=== PATIENT | male | born 1980 | race Caucasian/White ===

== ENCOUNTER 2017-02-08 12:47 | Emergency (ER) | payer BC ==
[2017-02-08] MEDS ORDERED: Acetaminophen 500 MG Tab PO ONE (14:00)
--- NOTE | 2017-02-08 15:24 | CR ---
INDICATION: Short of breath, fever. CHEST: PA and two lateral views of the chest were obtained 02/08/2017. No comparisons were available. Evidence of exogenous obesity is noted. The heart did not appear enlarged. There is an appearance of a poor inspiration emphasized by the patient body habitus. No consolidating pneumonia or effusion was identified. IMPRESSION: 1. No acute process. 2. Exogenous obesity. MTDD
--- NOTE | 2017-02-09 09:44 | ER ---
DATE SEEN: 02/08/2017 HISTORY OF PRESENT ILLNESS: This is a 37-year-old single 500 pound male, who was seen by Daisy Awad CNP, this morning and telephone call was made by Daisy to me and he was transferred to the ED for further evaluation. He had a white count of 34,000, has hypertension, is 530 pounds, and denies shortness of breath, chest pain, irregular heartbeat, nausea, or vomiting. He has had 5 days of chills, fever, myalgia, slight cough, mild headache, mild malaise, retching 3 times today, and mild shortness of breath. Chest x-ray was performed at the clinic, and it was negative. Differential at the clinic was performed, it is elevated with bandemia. Strep test obtained and mono test obtained, both are negative. He has hypertension and treats with lisinopril 20 mg and hydrochlorothiazide 25 mg daily. Previous surgery, none. He notes he has more pain in the right lower leg. He has had chronic pain in that is baseline. He had chronic lymphedema. He denies numbness in leg. PAST MEDICAL HISTORY: No diabetes. He does have hypertension, 2 drug therapy for hypertension. No asthma. Appears allergic to albuterol. No bleeding disorder. No surgery. He has massive weight. 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 He has had nausea and vomiting, but no diarrhea. Denies frequency, urgency, dysuria, or difficulty passing urine. He lives with his mother. 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 He denies headache, neck stiffness, lightheadedness, dizziness, or abdominal pain. He has right leg pain. PHYSICAL EXAMINATION: VITAL SIGNS: Blood pressure is 109/69, heart rate 124, respirations 24, oxygen saturation 99% on room air, and temperature is 38.8 degrees centigrade. CONSTITUTIONAL: The patient is a massive man, massive overhang of panniculus of his abdomen. He is not looking short of breath presently. Marked facial fullness, unshaven, has a landeros. He is attended by his mother. HEENT: Pharynx without abnormality. He has a large tongue. TMs negative. NECK: Supple. No thyromegaly, no masses, no cervical lymphadenopathy. HEART: S1, S2. There is no murmur. No irregular rate and rhythm. CHEST: Massive chest wall size, AP diameter, but no crepitus with palpation. No tenderness to chest wall with palpation. ABDOMEN: Nontender, massive abdominal girth. EXTREMITIES: Lower extremities, marked stasis dermatitis with violaceous discoloration and erythema below the knee on the right side. No erythema below the left knee. Pulses present and the dorsalis pedis pulses decreased. Because of the extensive lymphedema, there is 1+ edema, but it is difficult to determine, because he has marked skin fold with lymphedema at his ankles and proximal to his ankles. He has no intertrigo. DIAGNOSTIC STUDIES: Blood work repeated 32,200 with PMNs 85, lymphocytes 6, 1 monocytes, 8 bands, hemoglobin 14, and platelets 232,000. PT is 13.5, INR is 1.33. D-dimer is 1730. Sodium 134, potassium 3.8, chloride 99, bicarbonate 26, BUN 16, creatinine 1.2, glucose 137, total protein is normal at 7.8, albumin 2.5. Remainder of liver enzymes, bilirubin, and calcium are normal. ASSESSMENT: 1. Cellulitis, right lower extremity, rule out Pseudomonas. Because of his massive weight and size of his lower extremity, ultrasound was not performed. D-dimer is elevated secondary to vascular stasis in lower extremities, because of his underlying massive edema. The plan is to treat. There is a new device that is approximately $6,000.00, LymphoStat, which is discussed [facility] lymphedema specialist on the radio yesterday. Perhaps this is something he would benefit and he was instructed inquire with the staff at [place], and [facility] staff. 2. Start with Xarelto 15 mg b.i.d. for 21 days then 20 mg daily. He does does not really have DVT, but he has stasis dermatitis, he is at risk for DVT, and benefit form. 3. Cellulitis, right lower extremity, rule out Pseudomonas, treated with Levaquin 750 mg 1 tablet daily for 5 days. Follow up with doctor next week. Also apply Vaseline to the lower extremities to avoid crack in the skin and entry of bacteria through the skin (seeding through his lower extremities). 4. Other diagnosis: morbid obesity and urinalysis normal. No evidence for urinary tract infection. He did have positive leukocyte esterase but the rest of the urine was negative on the laboratory studies performed at the clinic today. /[id number] GARCIA/BECK CODY
== END 2017-02-08 15:21 | disposition home or self-care (01) ==
LOC: FB.ED 12:47
DX: L03.115 Cellulitis of right lower limb (principal); I87.2 Venous insufficiency (chronic) (peripheral); E66.01 Morbid (severe) obesity due to excess calories; I10 Essential (primary) hypertension; Z79.899 Other long term (current) drug therapy
CPT/HCPCS: 36415; 71020; 80053; 83605; 85025; 85379; 85610; 87040; 99284; A9270

== ENCOUNTER 2019-02-13 13:59 | Emergency (ER) | payer BC ==
--- NOTE | 2019-02-14 08:52 | ER ---
DATE SEEN: 02/13/2019 CHIEF COMPLAINT: Left leg pain. HISTORY OF PRESENT ILLNESS: A 39-year-old male, who complains of pain in the left calf. It was the ankle. This started yesterday after an injury while walking, felt a sharp pain that radiates up to the knee. Pain is worse with weightbearing. He does have chronic lymphedema and obesity and hypertension that is previously uncontrolled. REVIEW OF SYSTEMS: No fever, shortness of breath, or chest pain. SOCIAL HISTORY: Nonsmoker. Works at [employer]. PAST MEDICAL HISTORY: He has no history of recent surgery or blood clots. PHYSICAL EXAMINATION: VITAL SIGNS: Blood pressure initially 147/106, temperature 98.1, pulse 101, oxygenation 99% on room air. EXTREMITIES: Left ankle revealed marked lymphedema. Mild warmth to palpation distally and some tenderness to palpation over the Achilles tendon area. LABORATORY DATA: Labs were remarkable for CRP and a slight elevation in D- dimer. IMPRESSION: Injury of left leg. PLAN: I suspect this is an inflammation or injury of the Achilles tendon or the gastrocnemius muscle. I suspect worsening of the lymphedema, but I do not feel it is related to a blood clot. As such, I will discharge him home with ice, elevation, and ibuprofen p.r.n. and not to return to work tonight and see Daisy Awad CNP, tomorrow at the clinic. /[id number] SHENG/BECK
== END 2019-02-13 15:25 | disposition home or self-care (01) ==
LOC: FB.ED 13:59
DX: S89.92XA Unspecified injury of left lower leg, initial encounter (principal); I89.0 Lymphedema, not elsewhere classified; I10 Essential (primary) hypertension; E66.9 Obesity, unspecified; Z68.45 Body mass index [BMI] 70 or greater, adult; W00.0XXA Fall on same level due to ice and snow, initial encounter; Y93.01 Activity, walking, marching and hiking; Y92.009 Unspecified place in unspecified non-institutional (private) residence as the place of occurrence of the external cause
CPT/HCPCS: 36415; 80048; 85025; 85379; 86140; 99283

== ENCOUNTER 2020-12-02 06:11 | Inpatient (IN) | payer BC ==
[2020-12-02] MEDS ORDERED: Acetaminophen/oxyCODONE 325-5 MG Tab PO STA (08:39)
[2020-12-02] MEDS: Sodium Chloride 0.9% 10 ML Syringe FLUSH PRN ×3 (09:21→16:42)
[2020-12-02] MEDS ORDERED: Piperacillin/Tazobactam 4.5 GM in Sodium Chloride 0.9% 100 ML IV SCH (10:00)
[2020-12-02] MEDS ORDERED: Morphine 2 MG/ML SYRINGE IVPUSH PRN (12:55)
[2020-12-02] MEDS: Ondansetron 4 MG/2 ML SDV IV PRN (13:24)
--- NOTE | 2020-12-02 13:39 | CR ---
CHEST ONE VIEW INDICATION: Short of breath. FINDINGS: AP portable upright view of the chest 12/02/20 was compared with 02/08/17. Exogenous obesity is noted. The heart appears somewhat enlarged but is markedly emphasized by patient body habitus and poor inspiration. A definite active infiltrate or effusion was not identified. MTDD
[2020-12-02] MEDS: Enoxaparin 40 MG/0.4 ML Syringe SUBCUT SCH (13:43)
--- NOTE | 2020-12-02 16:30 | US ---
INDICATION: Elevated D-dimer, leg pain. Question DVT. DUPLEX ULTRASOUND, LEFT LOWER EXTREMITY VEINS: Utilizing 2D real-time duplex Doppler, spectral analysis and color-flow imaging, examination of the left lower extremity veins was obtained. The study is limited due to the patient's large body habitus. Only the common femoral, greater saphenous and SFJ proximally and proximal femoral vein were visualized. Calf was not adequately visualized. As visualized, however, no evidence for deep venous thrombosis could be identified. IMPRESSION: No evidence of deep venous thrombosis - limited study. Report was called to Dr. Levi vivas, 12/02/20. MTDD
[2020-12-02] MEDS: Piperacillin/Tazobactam 4.5 GM in Sodium Chloride 0.9% 100 ML IV SCH ×2 (16:41→22:26)
--- NOTE | 2020-12-02 17:18 | PCM.HP.2 ---
H&P History of Present Illness - General Date of Service: 12/02/20 Admit Problem/Dx: Admission Diagnosis/Problem Admission Diagnosis/Problem Cellulitis Source of Information: Patient History Limitations: Reports: No Limitations - History of Present Illness Initial Comments - Free Text/Narative: This is a 40-year-old male patient that has about 1 week history of left lower leg pain and a slight fever. Got worse today so he came into the ER. He saw Mann Wade earlier this week and nobody gave any antibiotics. He denies chills, nausea, vomiting. He says he has had MRSA in the past. No injury to his leg that he knows of. left leg Pain Score (Numeric/FACES): 8 - Related Data Allergies/Adverse Reactions: Allergies Allergy/AdvReac Type Severity Reaction Status Date / Time albuterol Allergy Dizziness Verified 12/02/20 06:38 Home Medications: Home Meds Hydrochlorothiazide/Lisinopril [Lisinopril/HCTZ 20-12.5 MG] 1 tab PO DAILY 12/02/20 [History] Liraglutide [Victoza] 1.8 mg SQ DAILY 12/02/20 [History] Multivitamins [Tab-A-Sami] 1 tab PO DAILY 12/02/20 [History] Past Medical History Cardiovascular History: Reports: Hypertension Respiratory History: Reports: SOB Musculoskeletal History: Reports: Other (See Below) Other Musculoskeletal History: tendonitis Endocrine/Metabolic History: Reports: Diabetes, Type II, Obesity/BMI 30+, Other (See Below) Other Endocrine/Metabolic History: morbid obesity Dermatologic History: Reports: Other (See Below) Other Dermatologic History: 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 - Infectious Disease History Infectious Disease History: Reports: Chicken Pox - Past Surgical History Cardiovascular Surgical History: Reports: None Respiratory Surgical History: Reports: None Endocrine Surgical History: Reports: None Musculoskeletal Surgical History: Reports: None Dermatological Surgical History: Reports: None Social & Family History - Family History Family Medical History: No Pertinent Family History - Tobacco Use Tobacco Use Status *Q: Never Tobacco User Second Hand Smoke Exposure: Yes - Caffeine Use Caffeine Use: Reports: Coffee Caffeine Use Comment: Drinks coffee regularly - Recreational Drug Use Recreational Drug Use: No H&P Review of Systems - Review of Systems: Review Of Systems: See Below General: Reports: Fever HEENT: Reports: No Symptoms Pulmonary: Reports: No Symptoms Cardiovascular: Reports: No Symptoms Gastrointestinal: Reports: No Symptoms Genitourinary: Reports: No Symptoms Musculoskeletal: Reports: No Symptoms Skin: Reports: Rash, Erythema Psychiatric: Reports: No Symptoms Neurological: Reports: No Symptoms Hematologic/Lymphatic: Reports: No Symptoms Immunologic: Reports: No Symptoms Exam - Exam Exam: See Below - Vital Signs Vital Signs: Last Vital Signs Temp 100.5 F 12/02/20 13:15 Pulse 129 H 12/02/20 13:15 Resp 22 H 12/02/20 13:15 BP 81/49 L 12/02/20 13:15 Pulse Ox 95 12/02/20 13:15 Weight: 599 lb 6.4 oz - Exam General: Alert, Oriented, Cooperative, Other (Obese) HEENT: Hearing Intact, Mucosa Moist & [place], Posterior Pharynx Clear, TMs Clear Neck: Supple, Trachea Midline Lungs: Clear to Auscultation, Normal Respiratory Effort. No: Crackles, Rales, Rhonchi Cardiovascular: Regular Rate, Regular Rhythm. No: Systolic Murmur GI/Abdominal Exam: Normal Bowel Sounds, Soft, Non-Tender, No Distention Back Exam: Normal Inspection Extremities: Other (Chronic lymphedema bilateral) Skin: Other (Erythema left lower leg with area looks like abrasion that has a crust but not weeping.) Neuro Extensive - Mental Status: Alert, Oriented x3, Normal Mood/Affect, Normal Cognition Neuro Extensive - Motor, Sensory, Reflexes: Normal Gait Psychiatric: Alert, Normal Affect, Normal Mood - Patient Data Lab Results Last 24 hrs: Laboratory Results - last 24 hr 12/02/20 12/02/20 12/02/20 Range/Units 06:35 06:35 06:35 WBC 29.3 H (3.2-10.1) x10-3/uL RBC 4.92 (3.90-5.90) x10(6)uL Hgb 12.9 (12.9-17.7) g/dL Hct 41.5 (38.3-50.1) % MCV 84.5 (80.8-98.7) fL MCH 26.3 L (27.0-33.3) pg MCHC 31.2 (28.7-35.3) g/dL RDW 15.6 H (12.4-15.0) % Plt Count 286 (117-477) x10(3)uL MPV 10.9 (6.7-11.0) fL Add Manual Diff Yes Neutrophils % (Manual) 60 (46-82) % Band Neutrophils % 27 H* (0-6) % Lymphocytes % (Manual) 4 L (13-37) % Monocytes % (Manual) 5 (4-12) % Metamyelocytes % 2 H (0-0) % Myelocytes % 2 H (0-0) % D-Dimer, Quantitative 1.55 H (0.0-0.59) mg/LFEU Sodium 140 (135-145) mmol/L Potassium 3.4 L (3.5-5.3) mmol/L Chloride 101 D (100-110) mmol/L Carbon Dioxide 24 (21-32) mmol/L BUN 23 H D (7-18) mg/dL Creatinine 2.6 H* (0.70-1.30) mg/dL Est Cr Clr Drug Dosing 37.39 mL/min Estimated GFR (MDRD) 27 L (>60) BUN/Creatinine Ratio 8.8 L (9-20) Glucose 154 H (80-116) mg/dL Calcium 8.1 L (8.6-10.2) mg/dL Total Bilirubin 1.0 (0.1-1.3) mg/dL AST 20 (5-25) IU/L ALT 24 D (12-36) U/L Alkaline Phosphatase 68 (56-112) IU/L Troponin I (4.0-60.3) pg/mL C-Reactive Protein (0.5-0.9) mg/dL NT-Pro-B Natriuret Pep (<=125) pg/mL Total Protein 6.7 (6.0-8.0) g/dL Albumin 2.4 L (3.5-5.2) g/dL Globulin 4.3 g/dL Albumin/Globulin Ratio 0.6 SARS-CoV-2 RNA (MIROSLAVA) (NEGATIVE) 12/02/20 12/02/20 12/02/20 Range/Units 06:35 06:35 10:18 WBC (3.2-10.1) x10-3/uL RBC (3.90-5.90) x10(6)uL Hgb (12.9-17.7) g/dL Hct (38.3-50.1) % MCV (80.8-98.7) fL MCH (27.0-33.3) pg MCHC (28.7-35.3) g/dL RDW (12.4-15.0) % Plt Count (117-477) x10(3)uL MPV (6.7-11.0) fL Add Manual Diff Neutrophils % (Manual) (46-82) % Band Neutrophils % (0-6) % Lymphocytes % (Manual) (13-37) % Monocytes % (Manual) (4-12) % Metamyelocytes % (0-0) % Myelocytes % (0-0) % D-Dimer, Quantitative (0.0-0.59) mg/LFEU Sodium (135-145) mmol/L Potassium (3.5-5.3) mmol/L Chloride (100-110) mmol/L Carbon Dioxide (21-32) mmol/L BUN (7-18) mg/dL Creatinine (0.70-1.30) mg/dL Est Cr Clr Drug Dosing mL/min Estimated GFR (MDRD) (>60) BUN/Creatinine Ratio (9-20) Glucose (80-116) mg/dL Calcium (8.6-10.2) mg/dL Total Bilirubin (0.1-1.3) mg/dL AST (5-25) IU/L ALT (12-36) U/L Alkaline Phosphatase (56-112) IU/L Troponin I 52.2 (4.0-60.3) pg/mL C-Reactive Protein 16.4 H* (0.5-0.9) mg/dL NT-Pro-B Natriuret Pep 2996 H* (<=125) pg/mL Total Protein (6.0-8.0) g/dL Albumin (3.5-5.2) g/dL Globulin g/dL Albumin/Globulin Ratio SARS-CoV-2 RNA (MIROSLAVA) Negative (NEGATIVE) Result Diagrams: 12/02/20 06:35 12/02/20 06:35 Sepsis Event Note - Evaluation Sepsis Screening Result: Possible Sepsis Risk - Focused Exam Vital Signs: Vital Signs Temp Pulse Resp BP BP Pulse Ox 12/02/20 13:15 100.5 F 129 H 22 H 81/49 L 95 12/02/20 06:15 96.5 F L 129 H 28 H 108/50 L 96 - Problem List (1) Cellulitis SNOMED Code(s): 077155457 ICD Code: L03.90 - CELLULITIS, UNSPECIFIED Status: Acute Current Visit: Yes (2) Chronic acquired lymphedema SNOMED Code(s): 33165948 ICD Code: I89.0 - LYMPHEDEMA, NOT ELSEWHERE CLASSIFIED Status: Acute Current Visit: Yes (3) Obesity SNOMED Code(s): 107077805, 557780495 ICD Code: E66.9 - OBESITY, UNSPECIFIED Status: Acute Current Visit: Yes (4) History of MRSA infection SNOMED Code(s): 495110236, 382989086 ICD Code: Z86.14 - PERSONAL HISTORY OF METHICILLIN RESIS STAPH INFECTION Status: Acute Current Visit: Yes (5) Palliative care status SNOMED Code(s): 093557406 ICD Code: Z51.5 - ENCOUNTER FOR PALLIATIVE CARE Status: Acute Current Visit: Yes Problem List Initiated/Reviewed/Updated: Yes Orders Last 24hrs: Active Orders 24 hr Category Date Time Status Patient Status [ADT] Routine ADT 12/02/20 12:55 Active Intake and Output [RC] 06,14,22 Care 12/02/20 12:58 Active Oxygen Therapy [RC] PRN Care 12/02/20 12:55 Active Pulse Oximetry [RC] CONTINUOUS Care 12/02/20 12:58 Active Up With Assistance [RC] ASDIRECTED Care 12/02/20 12:55 Active VTE/DVT Education [RC] Per Unit Routine Care 12/02/20 12:55 Active Vital Signs [RC] 08,12,16,20,00,04 Care 12/02/20 12:55 Active Heart Healthy Diet [DIET] Diet 12/02/20 Dinner Active BASIC METABOLIC PANEL,BMP [CHEM] AM Lab 12/03/20 05:11 Ordered CBC WITH AUTO DIFF [HEME] AM Lab 12/03/20 05:11 Ordered VANCOMYCIN TROUGH [CHEM] Timed Lab 12/04/20 04:30 Ordered Acetaminophen/HYDROcodone [[place] 325-5 MG] Med 12/02/20 12:55 Active 2 tab PO Q4H PRN Docusate Sodium/Sennosides [Senna Plus] Med 12/02/20 12:55 Active 1 tab PO BID PRN Enoxaparin [Lovenox] Med 12/02/20 13:00 Active 40 mg SUBCUT Q12H Liraglutide [Victoza] Med 12/03/20 09:00 Pending 1.8 mg SQ DAILY Morphine Med 12/02/20 12:55 Active 2 mg IVPUSH Q2H PRN Ondansetron [Zofran] Med 12/02/20 12:55 Active 4 mg IV Q4H PRN Pharmacy to Dose - Vancomycin Med 12/02/20 17:00 Pending 1 dose .XX ASDIRECTED Piperacillin/Tazobactam [Zosyn] 4.5 gm Med 12/02/20 16:00 Active Sodium Chloride 0.9% [Normal Saline] 100 ml IV Q6H Sodium Chloride 0.9% [Saline Flush] Med 12/02/20 08:40 Active 10 ml FLUSH ASDIRECTED PRN VANCOmycin 2 GM/400 ML 2 gm Med 12/02/20 17:00 Active Premix Bag 1 bag IV Q12H Saline Lock Insert [OM.PC] Routine Oth 12/02/20 08:40 Ordered Resuscitation Status Routine Resus Stat 12/02/20 12:55 Ordered Medication Orders Hydrocodone Bitart/Acetaminophen (Acetaminophen/Hydrocodone 325-5 Mg Tab) 2 tab PO Q4H PRN PRN Reason: Pain (moderate 4-6) Enoxaparin Sodium (Enoxaparin 40 Mg/0.4 Ml Syringe) 40 mg SUBCUT Q12H [facility] Last Admin: 12/02/20 13:43 Dose: 40 mg Documented by: ORQUIDEA Piperacillin Sod/Tazobactam (Sod 4.5 gm/ Sodium Chloride) 100 mls @ 200 mls/hr IV Q6H [facility] Last Admin: 12/02/20 16:41 Dose: 200 mls/hr Documented by: BOSHCAT Vancomycin HCl 2 gm/ Premix 400 mls @ 200 mls/hr IV Q12H [facility] Morphine Sulfate (Morphine 2 Mg/Ml Syringe) 2 mg IVPUSH Q2H PRN PRN Reason: Pain (severe 7-10) Non-Formulary Medication (Liraglutide [Victoza]) 1.8 mg SQ DAILY TONE Ondansetron HCl (Ondansetron 4 Mg/2 Ml Sdv) 4 mg IV Q4H PRN PRN Reason: Nausea/Vomiting Last Admin: 12/02/20 13:24 Dose: 4 mg Documented by: ORQUIDEA Senna/Docusate Sodium (Docusate Sodium/Sennosides 50-8.6 Mg Tab) 1 tab PO BID PRN PRN Reason: Constipation Sodium Chloride (Sodium Chloride 0.9% 10 Ml Syringe) 10 ml FLUSH ASDIRECTED PRN PRN Reason: Keep Vein Open Last Admin: 12/02/20 16:42 Dose: 10 ml Documented by: Admin: 12/02/20 13:24 Dose: 10 ml Documented by: Admin: 12/02/20 09:21 Dose: 10 ml Documented by: DAX Vancomycin HCl (Pharmacy To Dose - Vancomycin) 1 dose .XX ASDIRECTED TONE Assessment/Plan Comment:: 1. Admit to inpatient 2. Start Zosyn and vancomycin IV. 3. Regular diet 4. Hydrocodone for pain 5. Hold blood pressure medication 6. IV fluids 7. Repeat labs in the morning. 8. Culture of the wound. 9. Make sure he has had blood cultures. - Mortality Measure Prognosis:: Good
[2020-12-02] MEDS ORDERED: Sodium Chloride 0.9% 1,000 ML IV SCH (17:30)
[2020-12-02] MEDS ORDERED: Sodium Chloride 0.9% 500 ML IV ONE (17:38)
[2020-12-02] MEDS: VANCOmycin 2 GM/400 ML 2 GM in Premix Bag 1 BAG IV SCH (17:45)
[2020-12-02] MEDS ORDERED: Sodium Chloride 0.9% 1,000 ML IV ONE (20:09)
--- NOTE | 2020-12-02 21:50 | PCM.SN.2 ---
- Free Text/Narrative Note: I was asked to see time because of an increased heart rate of 129, with a borderline low blood pressure. He was admitted earlier today for cellulitis, and mobility abuse. In addition IV line infiltrated, and the distribution driver was having difficulty placing access. On physical exam came across with mild respiratory distress. I reviewed his labs he has a creatinine of 2.6 with a white cell count [id number].I attempted an I/O x2 with no success at the right femoral head.We were eventually able to get access in his belly. I ordered a bolus on 1L NS and reassess. Time Documentation
[2020-12-02] MEDS ORDERED: Furosemide 40 MG/4 ML VIAL IVPUSH ONE (22:00)
--- NOTE | 2020-12-02 22:10 | PCM.SN.2 ---
- Free Text/Narrative Note: [facility] Date: 12/02/2020 Time: 2034 to 2139 Dx: Sepsis, Super Morbid Obesity with BMI 89, and Very Difficult Peripheral Access Rx: Obtain Peripheral Venous Access I was called by the floor RN to come and start an IV. Numerous attempts without success by the floor RN. I tried at least 5 times in the right ACF and shoulder plus the left ACF and Shoulder without success. Dr. Saravia attempted an IO in the right proximal Tibia X 2 attempts without success. I did find an engorged superficial right lateral lower abdominal vein. I prepped the area with a ChloraPrep X 1 and allowed it to dry. Using a [employer] BC Winged 22 Ga. X 1.00 In. needle, I inserted and advanced it fairly easily with a great blood return. I placed an Op-Site dressing and flushed the catheter with 10 ml's of Normal Saline without complication. The patient tolerated this procedure as well as can be expected. Sadiq Pride CRNA, A Time Documentation
[2020-12-02] MEDS: Sodium Chloride 0.9% 1,000 ML IV SCH (22:23)
[2020-12-03] MEDS: Enoxaparin 40 MG/0.4 ML Syringe SUBCUT SCH ×2 (01:00→12:13)
[2020-12-03] MEDS: Ondansetron 4 MG/2 ML SDV IV PRN ×2 (01:22→08:07)
[2020-12-03] MEDS: Sodium Chloride 0.9% 1,000 ML IV SCH ×7 (03:35→18:55)
[2020-12-03] MEDS: Piperacillin/Tazobactam 4.5 GM in Sodium Chloride 0.9% 100 ML IV SCH ×4 (03:55→22:34)
[2020-12-03] MEDS: VANCOmycin 2 GM/400 ML 2 GM in Premix Bag 1 BAG IV SCH ×2 (05:13→17:08)
--- NOTE | 2020-12-03 07:29 | EDM.PDOC ---
ED HPI GENERAL MEDICAL PROBLEM - General Chief Complaint: Lower Extremity Injury/Pain Stated Complaint: PAIN IN LEFT LEG Time Seen by Provider: 12/02/20 06:20 Source of Information: Reports: Patient History Limitations: Reports: No Limitations - History of Present Illness INITIAL COMMENTS - FREE TEXT/NARRATIVE: Patient is a 40 YO WM who presented to the ED because of a worsening leg pain for the past week. It's red, swollen, tender and weeping with some sero sanguinous fluid. There is no fever, chills, cough/cold symptoms. He is worried that he might have a blood clot. He also c/o dyspnea even with mild exertion, denies having any chest pain. He was seen in the clinic but no antibiotic was given. left leg Pain Score (Numeric/FACES): 8 - Related Data Allergies Allergy/AdvReac Type Severity Reaction Status Date / Time albuterol Allergy Dizziness Verified 12/02/20 06:38 Home Meds: Home Meds Hydrochlorothiazide/Lisinopril [Lisinopril/HCTZ 20-12.5 MG] 1 tab PO DAILY 12/02/20 [History] Liraglutide [Victoza] 1.8 mg SQ DAILY 12/02/20 [History] Multivitamins [Tab-A-Sami] 1 tab PO DAILY 12/02/20 [History] Past Medical History Cardiovascular History: Reports: Hypertension Respiratory History: Reports: SOB Musculoskeletal History: Reports: Other (See Below) Other Musculoskeletal History: tendonitis Endocrine/Metabolic History: Reports: Diabetes, Type II, Obesity/BMI 30+, Other (See Below) Other Endocrine/Metabolic History: morbid obesity Dermatologic History: Reports: Other (See Below) Other Dermatologic History: 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 - Infectious Disease History Infectious Disease History: Reports: Chicken Pox - Past Surgical History Cardiovascular Surgical History: Reports: None Respiratory Surgical History: Reports: None Endocrine Surgical History: Reports: None Musculoskeletal Surgical History: Reports: None Dermatological Surgical History: Reports: None Social & Family History - Family History Family Medical History: No Pertinent Family History - Tobacco Use Tobacco Use Status *Q: Never Tobacco User Second Hand Smoke Exposure: Yes - Caffeine Use Caffeine Use: Reports: Coffee Caffeine Use Comment: Drinks coffee regularly - Recreational Drug Use Recreational Drug Use: No ED ROS GENERAL - Review of Systems Review Of Systems: See Below Constitutional: Reports: No Symptoms HEENT: Reports: No Symptoms Respiratory: Reports: Shortness of Breath Cardiovascular: Reports: No Symptoms Endocrine: Reports: No Symptoms GI/Abdominal: Reports: No Symptoms : Reports: No Symptoms Musculoskeletal: Reports: No Symptoms Skin: Reports: Erythema Neurological: Reports: No Symptoms Psychiatric: Reports: No Symptoms ED EXAM, GENERAL - Physical Exam Exam: See Below Exam Limited By: No Limitations General Appearance: Alert, No Apparent Distress Eye Exam: Bilateral Eye: PERRL Ears: Normal External Exam, Normal Canal Nose: Normal Inspection, Normal Mucosa, No Blood Throat/Mouth: Normal Inspection, Normal Lips, Normal Teeth, Normal Oropharynx Head: Atraumatic, Normocephalic Neck: Normal Inspection, Supple, Non-Tender, Full Range of Motion Respiratory/Chest: No Respiratory Distress, Lungs Clear, Normal Breath Sounds, No Accessory Muscle Use, Chest Non-Tender Cardiovascular: Normal Peripheral Pulses, Regular Rate, Rhythm, No Edema, No Gallop, No JVD, No Murmur, No Rub GI/Abdominal: Normal Bowel Sounds, Soft, Non-Tender, No Distention Back Exam: Normal Inspection Extremities: Other (erythema left leg with tenderness) Course - Vital Signs Text/Narrative:: Lab/ Doppler US LLE result was reviewed and discussed with patient and his mother Jailene 1gm IV x1 Covid-negative Code status-DNR/DNI It took a while for patient to get admitted because of the Doppler US which is scheduled at 12 nn because they just have to squeeze him in for their fully booked schedule. Last Recorded V/S: Last Vital Signs Temp 37.5 C 12/03/20 05:45 Pulse 120 H 12/03/20 05:45 Resp 28 H 12/03/20 05:45 BP 90/40 L 12/03/20 05:45 Pulse Ox 95 12/03/20 05:45 - Orders/Labs/Meds Orders: Active Orders 24 hr Category Date Time Status Patient Status [ADT] Routine ADT 12/02/20 12:55 Active Intake and Output [RC] ,, Care 12/02/20 12:58 Active Oxygen Therapy [RC] PRN Care 12/02/20 12:55 Active Pulse Oximetry [RC] PRN Care 12/02/20 12:58 Active Up With Assistance [RC] ASDIRECTED Care 12/02/20 12:55 Active VTE/DVT Education [RC] Per Unit Routine Care 12/02/20 12:55 Active Vital Signs [RC] 08,12,16,20,00,04 Care 12/02/20 12:55 Active Heart Healthy Diet [DIET] Diet 12/02/20 Dinner Active CBC WITH AUTO DIFF [HEME] AM Lab 12/03/20 06:18 Results Acetaminophen/HYDROcodone [[place] 325-5 MG] Med 12/02/20 12:55 Active 2 tab PO Q4H PRN Docusate Sodium/Sennosides [Senna Plus] Med 12/02/20 12:55 Active 1 tab PO BID PRN Enoxaparin [Lovenox] Med 12/02/20 13:00 Active 40 mg SUBCUT Q12H Morphine Med 12/02/20 12:55 Active 2 mg IVPUSH Q2H PRN Ondansetron [Zofran] Med 12/02/20 12:55 Active 4 mg IV Q4H PRN Sodium Chloride 0.9% [Saline Flush] Med 12/02/20 08:40 Active 10 ml FLUSH ASDIRECTED PRN Saline Lock Insert [OM.PC] Routine Oth 12/02/20 08:40 Ordered Resuscitation Status Routine Resus Stat 12/02/20 12:55 Ordered Medication Orders Hydrocodone Bitart/Acetaminophen (Acetaminophen/Hydrocodone 325-5 Mg Tab) 2 tab PO Q4H PRN PRN Reason: Pain (moderate 4-6) Enoxaparin Sodium (Enoxaparin 40 Mg/0.4 Ml Syringe) 40 mg SUBCUT Q12H [facility] Last Admin: 12/03/20 01:00 Dose: 40 mg Documented by: Admin: 12/02/20 13:43 Dose: 40 mg Documented by: ORQUIDEA Piperacillin Sod/Tazobactam (Sod 4.5 gm/ Sodium Chloride) 100 mls @ 200 mls/hr IV Q6H [facility] Last Admin: 12/03/20 03:55 Dose: 200 mls/hr Documented by: Admin: 12/02/20 22:26 Dose: 200 mls/hr Documented by: Admin: 12/02/20 16:41 Dose: 200 mls/hr Documented by: ORQUIDEA Vancomycin HCl 2 gm/ Premix 400 mls @ 200 mls/hr IV Q12H TONE Last Admin: 12/03/20 05:13 Dose: 200 mls/hr Documented by: Infusion: 12/02/20 19:45 Dose: 200 mls/hr Documented by: Admin: 12/02/20 17:45 Dose: 200 mls/hr Documented by: RAMONE Sodium Chloride (Normal Saline) 1,000 mls @ 200 mls/hr IV ASDIRECTED [facility] Last Admin: 12/03/20 03:35 Dose: 200 mls/hr Documented by: Infusion: 12/03/20 03:23 Dose: 200 mls/hr Documented by: Admin: 12/02/20 22:23 Dose: 200 mls/hr Documented by: DANIEL Morphine Sulfate (Morphine 2 Mg/Ml Syringe) 2 mg IVPUSH Q2H PRN PRN Reason: Pain (severe 7-10) Non-Formulary Medication (Liraglutide [Victoza]) 1.8 mg SQ DAILY [facility] Ondansetron HCl (Ondansetron 4 Mg/2 Ml Sdv) 4 mg IV Q4H PRN PRN Reason: Nausea/Vomiting Last Admin: 12/03/20 01:22 Dose: 4 mg Documented by: Admin: 12/02/20 13:24 Dose: 4 mg Documented by: ORQUIDEA Senna/Docusate Sodium (Docusate Sodium/Sennosides 50-8.6 Mg Tab) 1 tab PO BID PRN PRN Reason: Constipation Sodium Chloride (Sodium Chloride 0.9% 10 Ml Syringe) 10 ml FLUSH ASDIRECTED PRN PRN Reason: Keep Vein Open Last Admin: 12/02/20 16:42 Dose: 10 ml Documented by: Admin: 12/02/20 13:24 Dose: 10 ml Documented by: Admin: 12/02/20 09:21 Dose: 10 ml Documented by: DAX Vancomycin HCl (Pharmacy To Dose - Vancomycin) 1 dose .XX ASDIRECTED [facility] Labs: Laboratory Tests 12/02/20 12/02/20 12/02/20 Range/Units 06:35 06:35 06:35 WBC 29.3 H (3.2-10.1) x10-3/uL RBC 4.92 (3.90-5.90) x10(6)uL Hgb 12.9 (12.9-17.7) g/dL Hct 41.5 (38.3-50.1) % MCV 84.5 (80.8-98.7) fL MCH 26.3 L (27.0-33.3) pg MCHC 31.2 (28.7-35.3) g/dL RDW 15.6 H (12.4-15.0) % Plt Count 286 (117-477) x10(3)uL MPV 10.9 (6.7-11.0) fL Add Manual Diff Yes Neutrophils % (Manual) 60 (46-82) % Band Neutrophils % 27 H* (0-6) % Lymphocytes % (Manual) 4 L (13-37) % Monocytes % (Manual) 5 (4-12) % Metamyelocytes % 2 H (0-0) % Myelocytes % 2 H (0-0) % D-Dimer, Quantitative 1.55 H (0.0-0.59) mg/LFEU Sodium 140 (135-145) mmol/L Potassium 3.4 L (3.5-5.3) mmol/L Chloride 101 D (100-110) mmol/L Carbon Dioxide 24 (21-32) mmol/L BUN 23 H D (7-18) mg/dL Creatinine 2.6 H* (0.70-1.30) mg/dL Est Cr Clr Drug Dosing 37.39 mL/min Estimated GFR (MDRD) 27 L (>60) BUN/Creatinine Ratio 8.8 L (9-20) Glucose 154 H (80-116) mg/dL Calcium 8.1 L (8.6-10.2) mg/dL Total Bilirubin 1.0 (0.1-1.3) mg/dL AST 20 (5-25) IU/L ALT 24 D (12-36) U/L Alkaline Phosphatase 68 (56-112) IU/L Troponin I (4.0-60.3) pg/mL C-Reactive Protein (0.5-0.9) mg/dL NT-Pro-B Natriuret Pep (<=125) pg/mL Total Protein 6.7 (6.0-8.0) g/dL Albumin 2.4 L (3.5-5.2) g/dL Globulin 4.3 g/dL Albumin/Globulin Ratio 0.6 SARS-CoV-2 RNA (MIROSLAVA) (NEGATIVE) 12/02/20 12/02/20 12/02/20 Range/Units 06:35 06:35 10:18 WBC (3.2-10.1) x10-3/uL RBC (3.90-5.90) x10(6)uL Hgb (12.9-17.7) g/dL Hct (38.3-50.1) % MCV (80.8-98.7) fL MCH (27.0-33.3) pg MCHC (28.7-35.3) g/dL RDW (12.4-15.0) % Plt Count (117-477) x10(3)uL MPV (6.7-11.0) fL Add Manual Diff Neutrophils % (Manual) (46-82) % Band Neutrophils % (0-6) % Lymphocytes % (Manual) (13-37) % Monocytes % (Manual) (4-12) % Metamyelocytes % (0-0) % Myelocytes % (0-0) % D-Dimer, Quantitative (0.0-0.59) mg/LFEU Sodium (135-145) mmol/L Potassium (3.5-5.3) mmol/L Chloride (100-110) mmol/L Carbon Dioxide (21-32) mmol/L BUN (7-18) mg/dL Creatinine (0.70-1.30) mg/dL Est Cr Clr Drug Dosing mL/min Estimated GFR (MDRD) (>60) BUN/Creatinine Ratio (9-20) Glucose (80-116) mg/dL Calcium (8.6-10.2) mg/dL Total Bilirubin (0.1-1.3) mg/dL AST (5-25) IU/L ALT (12-36) U/L Alkaline Phosphatase (56-112) IU/L Troponin I 52.2 (4.0-60.3) pg/mL C-Reactive Protein 16.4 H* (0.5-0.9) mg/dL NT-Pro-B Natriuret Pep 2996 H* (<=125) pg/mL Total Protein (6.0-8.0) g/dL Albumin (3.5-5.2) g/dL Globulin g/dL Albumin/Globulin Ratio SARS-CoV-2 RNA (MIROSLAVA) Negative (NEGATIVE) Meds: Medications Generic Name Dose Route Start Last Admin Trade Name Freq PRN Reason Stop Dose Admin Hydrocodone Bitart/Acetaminophen 2 tab 12/02/20 12:55 Acetaminophen/Hydrocodone 325-5 Mg Tab PO Q4H PRN Pain (moderate 4-6) Enoxaparin Sodium 40 mg 12/02/20 13:00 12/03/20 01:00 Enoxaparin 40 Mg/0.4 Ml Syringe SUBCUT 40 mg Q12H TONE Administration Piperacillin Sod/Tazobactam 100 mls @ 200 mls/hr 12/02/20 16:00 12/03/20 03:55 Sod 4.5 gm/ Sodium Chloride IV 200 mls/hr Q6H TONE Administration Vancomycin HCl 2 gm/ Premix 400 mls @ 200 mls/hr 12/02/20 17:00 12/03/20 05:13 IV 200 mls/hr Q12H TONE Administration Sodium Chloride 1,000 mls @ 200 mls/hr 12/02/20 22:15 12/03/20 03:35 Normal Saline IV 200 mls/hr ASDIRECTED TONE Administration Morphine Sulfate 2 mg 12/02/20 12:55 Morphine 2 Mg/Ml Syringe IVPUSH Q2H PRN Pain (severe 7-10) Non-Formulary Medication 1.8 mg 12/03/20 09:00 Liraglutide [Victoza] SQ DAILY TONE Ondansetron HCl 4 mg 12/02/20 12:55 12/03/20 01:22 Ondansetron 4 Mg/2 Ml Sdv IV 4 mg Q4H PRN Administration Nausea/Vomiting Senna/Docusate Sodium 1 tab 12/02/20 12:55 Docusate Sodium/Sennosides 50-8.6 Mg Tab PO BID PRN Constipation Sodium Chloride 10 ml 12/02/20 08:40 12/02/20 16:42 Sodium Chloride 0.9% 10 Ml Syringe FLUSH 10 ml ASDIRECTED PRN Administration Keep Vein Open Vancomycin HCl 1 dose 12/02/20 17:00 Pharmacy To Dose - Vancomycin .XX ASDIRECTED TONE Discontinued Medications Generic Name Dose Route Start Last Admin Trade Name Eliseo PRN Reason Stop Dose Admin Piperacillin Sod/Tazobactam 100 mls @ 200 mls/hr 12/02/20 10:00 12/02/20 10:17 Sod 4.5 gm/ Sodium Chloride IV 200 mls/hr Q6H TONE Administration Sodium Chloride 1,000 mls @ 150 mls/hr 12/02/20 17:30 12/02/20 17:44 Normal Saline IV 150 mls/hr ASDIRECTED TONE Administration Sodium Chloride 500 mls @ 999 mls/hr 12/02/20 17:38 12/02/20 17:43 Normal Saline IV 12/02/20 18:08 999 mls/hr .BOLUS ONE Administration Sodium Chloride 1,000 mls @ 999 mls/hr 12/02/20 20:09 12/02/20 22:58 Normal Saline IV 12/02/20 21:09 Not Given .BOLUS ONE Oxycodone/Acetaminophen 2 tab 12/02/20 08:39 12/02/20 08:55 Acetaminophen/Oxycodone 325-5 Mg Tab PO 12/02/20 08:40 2 tab NOW STA Administration Tranexamic Acid 500 mg 12/02/20 06:15 Tranexamic Acid 1,000 Mg/10 Ml Amp TOP 12/02/20 06:16 NOW STA Departure - Departure Time of Disposition: 14:00 Disposition: Admitted As Inpatient 65 Condition: Good (Cellulitis) Clinical Impression: Cellulitis, ART (acute kidney injury), CKD (chronic kidney disease), DM2 (diabetes mellitus, type 2), Lymphedema, MRSA (methicillin resistant Staphylococcus aureus) - Discharge Information Sepsis Event Note (ED) - Evaluation Sepsis Screening Result: Severe Sepsis Risk - My Orders Last 24 Hours: My Active Orders 12/02/20 08:40 Sodium Chloride 0.9% [Saline Flush] 10 ml FLUSH ASDIRECTED PRN Saline Lock Insert [OM.PC] Routine 12/02/20 12:55 Patient Status [ADT] Routine Oxygen Therapy [RC] PRN Up With Assistance [RC] ASDIRECTED VTE/DVT Education [RC] Per Unit Routine Vital Signs [RC] 08,12,16,20,00,04 Acetaminophen/HYDROcodone [[place] 325-5 MG] 2 tab PO Q4H PRN Docusate Sodium/Sennosides [Senna Plus] 1 tab PO BID PRN Morphine 2 mg IVPUSH Q2H PRN Ondansetron [Zofran] 4 mg IV Q4H PRN Resuscitation Status Routine 12/02/20 12:58 Intake and Output [RC] Pulse Oximetry [RC] PRN 12/02/20 13:00 Enoxaparin [Lovenox] 40 mg SUBCUT Q12H 12/02/20 Dinner Heart Healthy Diet [DIET] 12/03/20 06:18 CBC WITH AUTO DIFF [HEME] AM - Assessment/Plan Last 24 Hours: My Active Orders 12/02/20 08:40 Sodium Chloride 0.9% [Saline Flush] 10 ml FLUSH ASDIRECTED PRN Saline Lock Insert [OM.PC] Routine 12/02/20 12:55 Patient Status [ADT] Routine Oxygen Therapy [RC] PRN Up With Assistance [RC] ASDIRECTED VTE/DVT Education [RC] Per Unit Routine Vital Signs [RC] 08,12,16,20,00,04 Acetaminophen/HYDROcodone [[place] 325-5 MG] 2 tab PO Q4H PRN Docusate Sodium/Sennosides [Senna Plus] 1 tab PO BID PRN Morphine 2 mg IVPUSH Q2H PRN Ondansetron [Zofran] 4 mg IV Q4H PRN Resuscitation Status Routine 12/02/20 12:58 Intake and Output [RC] Pulse Oximetry [RC] PRN 12/02/20 13:00 Enoxaparin [Lovenox] 40 mg SUBCUT Q12H 12/02/20 Dinner Heart Healthy Diet [DIET] 12/03/20 06:18 CBC WITH AUTO DIFF [HEME] AM
--- NOTE | 2020-12-03 08:34 | PCM.PN ---
- General Info Date of Service: 12/03/20 Admission Dx/Problem (Free Text): Patient states he still has pain in his leg but is tolerable he does not want pain medication even also ordered at this time. Denies fevers, chills, chest pain, nausea, vomiting. He says he feels okay. - Patient Data Vitals - Most Recent: Last Vital Signs Temp 99.5 F 12/03/20 05:45 Pulse 120 H 12/03/20 05:45 Resp 28 H 12/03/20 05:45 BP 90/40 L 12/03/20 05:45 Pulse Ox 95 12/03/20 05:45 Weight - Most Recent: 599 lb 6.4 oz I&O - Last 24 Hours: Intake & Output 12/02/20 12/03/20 12/03/20 22:59 06:59 14:59 Intake Total 700 300 Output Total 200 Balance 700 100 Lab Results Last 24 Hours: Laboratory Results - last 24 hr 12/02/20 12/02/20 12/02/20 Range/Units 06:35 06:35 06:35 WBC 29.3 H (3.2-10.1) x10-3/uL RBC 4.92 (3.90-5.90) x10(6)uL Hgb 12.9 (12.9-17.7) g/dL Hct 41.5 (38.3-50.1) % MCV 84.5 (80.8-98.7) fL MCH 26.3 L (27.0-33.3) pg MCHC 31.2 (28.7-35.3) g/dL RDW 15.6 H (12.4-15.0) % Plt Count 286 (117-477) x10(3)uL MPV 10.9 (6.7-11.0) fL Add Manual Diff Yes Neutrophils % (Manual) 60 (46-82) % Band Neutrophils % 27 H* (0-6) % Lymphocytes % (Manual) 4 L (13-37) % Monocytes % (Manual) 5 (4-12) % Metamyelocytes % 2 H (0-0) % Myelocytes % 2 H (0-0) % Anisocytosis Sodium 140 (135-145) mmol/L Potassium 3.4 L (3.5-5.3) mmol/L Chloride 101 D (100-110) mmol/L Carbon Dioxide 24 (21-32) mmol/L BUN 23 H D (7-18) mg/dL Creatinine 2.6 H* (0.70-1.30) mg/dL Est Cr Clr Drug Dosing 37.39 mL/min Estimated GFR (MDRD) 27 L (>60) BUN/Creatinine Ratio 8.8 L (9-20) Glucose 154 H (80-116) mg/dL POC Glucose (80-116) mg/dL Lactic Acid (0.4-2.0) mmol/L Calcium 8.1 L (8.6-10.2) mg/dL Total Bilirubin 1.0 (0.1-1.3) mg/dL AST 20 (5-25) IU/L ALT 24 D (12-36) U/L Alkaline Phosphatase 68 (56-112) IU/L Troponin I (4.0-60.3) pg/mL C-Reactive Protein 16.4 H* (0.5-0.9) mg/dL NT-Pro-B Natriuret Pep (<=125) pg/mL Total Protein 6.7 (6.0-8.0) g/dL Albumin 2.4 L (3.5-5.2) g/dL Globulin 4.3 g/dL Albumin/Globulin Ratio 0.6 SARS-CoV-2 RNA ([facility]) (NEGATIVE) 12/02/20 12/02/20 12/02/20 Range/Units 06:35 10:18 17:40 WBC (3.2-10.1) x10-3/uL RBC (3.90-5.90) x10(6)uL Hgb (12.9-17.7) g/dL Hct (38.3-50.1) % MCV (80.8-98.7) fL MCH (27.0-33.3) pg MCHC (28.7-35.3) g/dL RDW (12.4-15.0) % Plt Count (117-477) x10(3)uL MPV (6.7-11.0) fL Add Manual Diff Neutrophils % (Manual) (46-82) % Band Neutrophils % (0-6) % Lymphocytes % (Manual) (13-37) % Monocytes % (Manual) (4-12) % Metamyelocytes % (0-0) % Myelocytes % (0-0) % Anisocytosis Sodium (135-145) mmol/L Potassium (3.5-5.3) mmol/L Chloride (100-110) mmol/L Carbon Dioxide (21-32) mmol/L BUN (7-18) mg/dL Creatinine (0.70-1.30) mg/dL Est Cr Clr Drug Dosing mL/min Estimated GFR (MDRD) (>60) BUN/Creatinine Ratio (9-20) Glucose (80-116) mg/dL POC Glucose (80-116) mg/dL Lactic Acid 3.9 H* (0.4-2.0) mmol/L Calcium (8.6-10.2) mg/dL Total Bilirubin (0.1-1.3) mg/dL AST (5-25) IU/L ALT (12-36) U/L Alkaline Phosphatase (56-112) IU/L Troponin I 52.2 (4.0-60.3) pg/mL C-Reactive Protein (0.5-0.9) mg/dL NT-Pro-B Natriuret Pep 2996 H* (<=125) pg/mL Total Protein (6.0-8.0) g/dL Albumin (3.5-5.2) g/dL Globulin g/dL Albumin/Globulin Ratio SARS-CoV-2 RNA ([facility]) Negative (NEGATIVE) 12/02/20 12/02/20 12/02/20 Range/Units 21:19 22:00 22:00 WBC 29.1 H (3.2-10.1) x10-3/uL RBC 4.85 (3.90-5.90) x10(6)uL Hgb 12.8 L (12.9-17.7) g/dL Hct 40.8 (38.3-50.1) % MCV 84.1 (80.8-98.7) fL MCH 26.5 L (27.0-33.3) pg MCHC 31.5 (28.7-35.3) g/dL RDW 15.7 H (12.4-15.0) % Plt Count 215 (117-477) x10(3)uL MPV 10.3 (6.7-11.0) fL Add Manual Diff Yes Neutrophils % (Manual) 70 (46-82) % Band Neutrophils % 21 H* (0-6) % Lymphocytes % (Manual) 3 L (13-37) % Monocytes % (Manual) 3 L (4-12) % Metamyelocytes % 2 H (0-0) % Myelocytes % 1 H (0-0) % Anisocytosis Sodium (135-145) mmol/L Potassium (3.5-5.3) mmol/L Chloride (100-110) mmol/L Carbon Dioxide (21-32) mmol/L BUN (7-18) mg/dL Creatinine (0.70-1.30) mg/dL Est Cr Clr Drug Dosing mL/min Estimated GFR (MDRD) (>60) BUN/Creatinine Ratio (9-20) Glucose (80-116) mg/dL POC Glucose 125 H (80-116) mg/dL Lactic Acid 2.7 H* (0.4-2.0) mmol/L Calcium (8.6-10.2) mg/dL Total Bilirubin (0.1-1.3) mg/dL AST (5-25) IU/L ALT (12-36) U/L Alkaline Phosphatase (56-112) IU/L Troponin I (4.0-60.3) pg/mL C-Reactive Protein (0.5-0.9) mg/dL NT-Pro-B Natriuret Pep (<=125) pg/mL Total Protein (6.0-8.0) g/dL Albumin (3.5-5.2) g/dL Globulin g/dL Albumin/Globulin Ratio SARS-CoV-2 RNA ([facility]) (NEGATIVE) 12/03/20 12/03/20 12/03/20 Range/Units 06:18 06:18 06:18 WBC 30.6 H* (3.2-10.1) x10-3/uL RBC 4.42 (3.90-5.90) x10(6)uL Hgb 11.8 L (12.9-17.7) g/dL Hct 36.8 L (38.3-50.1) % MCV 83.2 (80.8-98.7) fL MCH 26.7 L (27.0-33.3) pg MCHC 32.0 (28.7-35.3) g/dL RDW 15.6 H (12.4-15.0) % Plt Count 223 (117-477) x10(3)uL MPV 10.4 (6.7-11.0) fL Add Manual Diff Yes Neutrophils % (Manual) 70 (46-82) % Band Neutrophils % 23 H* (0-6) % Lymphocytes % (Manual) 2 L (13-37) % Monocytes % (Manual) 1 L (4-12) % Metamyelocytes % 4 H (0-0) % Myelocytes % (0-0) % Anisocytosis Few Sodium 138 (135-145) mmol/L Potassium 4.0 (3.5-5.3) mmol/L Chloride 99 L (100-110) mmol/L Carbon Dioxide 25 (21-32) mmol/L BUN 43 H D (7-18) mg/dL Creatinine 4.4 H* (0.70-1.30) mg/dL Est Cr Clr Drug Dosing 22.09 mL/min Estimated GFR (MDRD) 15 L (>60) BUN/Creatinine Ratio 9.8 (9-20) Glucose 136 H (80-116) mg/dL POC Glucose (80-116) mg/dL Lactic Acid 2.5 H* (0.4-2.0) mmol/L Calcium 7.6 L (8.6-10.2) mg/dL Total Bilirubin (0.1-1.3) mg/dL AST (5-25) IU/L ALT (12-36) U/L Alkaline Phosphatase (56-112) IU/L Troponin I (4.0-60.3) pg/mL C-Reactive Protein (0.5-0.9) mg/dL NT-Pro-B Natriuret Pep (<=125) pg/mL Total Protein (6.0-8.0) g/dL Albumin (3.5-5.2) g/dL Globulin g/dL Albumin/Globulin Ratio SARS-CoV-2 RNA ([facility]) (NEGATIVE) Med Orders - Current: Current Medications Hydrocodone Bitart/Acetaminophen (Acetaminophen/Hydrocodone 325-5 Mg Tab) 2 tab PO Q4H PRN PRN Reason: Pain (moderate 4-6) Enoxaparin Sodium (Enoxaparin 40 Mg/0.4 Ml Syringe) 40 mg SUBCUT Q12H TONE Last Admin: 12/03/20 01:00 Dose: 40 mg Documented by: Piperacillin Sod/Tazobactam (Sod 4.5 gm/ Sodium Chloride) 100 mls @ 200 mls/hr IV Q6H [facility] Last Admin: 12/03/20 03:55 Dose: 200 mls/hr Documented by: Vancomycin HCl 2 gm/ Premix 400 mls @ 200 mls/hr IV Q12H [facility] Last Admin: 12/03/20 05:13 Dose: 200 mls/hr Documented by: Sodium Chloride (Normal Saline) 1,000 mls @ 200 mls/hr IV ASDIRECTED [facility] Last Admin: 12/03/20 03:35 Dose: 200 mls/hr Documented by: Morphine Sulfate (Morphine 2 Mg/Ml Syringe) 2 mg IVPUSH Q2H PRN PRN Reason: Pain (severe 7-10) Non-Formulary Medication (Liraglutide [Victoza]) 1.8 mg SQ DAILY [facility] Ondansetron HCl (Ondansetron 4 Mg/2 Ml Sdv) 4 mg IV Q4H PRN PRN Reason: Nausea/Vomiting Last Admin: 12/03/20 08:07 Dose: 4 mg Documented by: Senna/Docusate Sodium (Docusate Sodium/Sennosides 50-8.6 Mg Tab) 1 tab PO BID PRN PRN Reason: Constipation Sodium Chloride (Sodium Chloride 0.9% 10 Ml Syringe) 10 ml FLUSH ASDIRECTED PRN PRN Reason: Keep Vein Open Last Admin: 12/02/20 16:42 Dose: 10 ml Documented by: Vancomycin HCl (Pharmacy To Dose - Vancomycin) 1 dose .XX ASDIRECTED [facility] Discontinued Medications Piperacillin Sod/Tazobactam (Sod 4.5 gm/ Sodium Chloride) 100 mls @ 200 mls/hr IV Q6H [facility] Last Admin: 12/02/20 10:17 Dose: 200 mls/hr Documented by: Sodium Chloride (Normal Saline) 1,000 mls @ 150 mls/hr IV ASDIRECTED [facility] Last Admin: 12/02/20 17:44 Dose: 150 mls/hr Documented by: Sodium Chloride (Normal Saline) 500 mls @ 999 mls/hr IV .BOLUS ONE Stop: 12/02/20 18:08 Last Admin: 12/02/20 17:43 Dose: 999 mls/hr Documented by: Sodium Chloride (Normal Saline) 1,000 mls @ 999 mls/hr IV .BOLUS ONE Stop: 12/02/20 21:09 Last Admin: 12/02/20 22:58 Dose: Not Given Documented by: Oxycodone/Acetaminophen (Acetaminophen/Oxycodone 325-5 Mg Tab) 2 tab PO NOW STA Stop: 12/02/20 08:40 Last Admin: 12/02/20 08:55 Dose: 2 tab Documented by: Tranexamic Acid (Tranexamic Acid 1,000 Mg/10 Ml Amp) 500 mg TOP NOW STA Stop: 12/02/20 06:16 - Exam General: Alert, Oriented, Severe Distress Neck: Supple Lungs: Normal Respiratory Effort Extremities: Other (Is chronic lymphedema bilateral. Still erythema and crusting on the left lower leg.) - Patient Data Lab Results Last 24 hrs: Laboratory Results - last 24 hr 12/02/20 12/02/20 12/02/20 Range/Units 06:35 06:35 06:35 WBC 29.3 H (3.2-10.1) x10-3/uL RBC 4.92 (3.90-5.90) x10(6)uL Hgb 12.9 (12.9-17.7) g/dL Hct 41.5 (38.3-50.1) % MCV 84.5 (80.8-98.7) fL MCH 26.3 L (27.0-33.3) pg MCHC 31.2 (28.7-35.3) g/dL RDW 15.6 H (12.4-15.0) % Plt Count 286 (117-477) x10(3)uL MPV 10.9 (6.7-11.0) fL Add Manual Diff Yes Neutrophils % (Manual) 60 (46-82) % Band Neutrophils % 27 H* (0-6) % Lymphocytes % (Manual) 4 L (13-37) % Monocytes % (Manual) 5 (4-12) % Metamyelocytes % 2 H (0-0) % Myelocytes % 2 H (0-0) % Anisocytosis Sodium 140 (135-145) mmol/L Potassium 3.4 L (3.5-5.3) mmol/L Chloride 101 D (100-110) mmol/L Carbon Dioxide 24 (21-32) mmol/L BUN 23 H D (7-18) mg/dL Creatinine 2.6 H* (0.70-1.30) mg/dL Est Cr Clr Drug Dosing 37.39 mL/min Estimated GFR (MDRD) 27 L (>60) BUN/Creatinine Ratio 8.8 L (9-20) Glucose 154 H (80-116) mg/dL POC Glucose (80-116) mg/dL Lactic Acid (0.4-2.0) mmol/L Calcium 8.1 L (8.6-10.2) mg/dL Total Bilirubin 1.0 (0.1-1.3) mg/dL AST 20 (5-25) IU/L ALT 24 D (12-36) U/L Alkaline Phosphatase 68 (56-112) IU/L Troponin I (4.0-60.3) pg/mL C-Reactive Protein 16.4 H* (0.5-0.9) mg/dL NT-Pro-B Natriuret Pep (<=125) pg/mL Total Protein 6.7 (6.0-8.0) g/dL Albumin 2.4 L (3.5-5.2) g/dL Globulin 4.3 g/dL Albumin/Globulin Ratio 0.6 SARS-CoV-2 RNA ([facility]) (NEGATIVE) 12/02/20 12/02/20 12/02/20 Range/Units 06:35 10:18 17:40 WBC (3.2-10.1) x10-3/uL RBC (3.90-5.90) x10(6)uL Hgb (12.9-17.7) g/dL Hct (38.3-50.1) % MCV (80.8-98.7) fL MCH (27.0-33.3) pg MCHC (28.7-35.3) g/dL RDW (12.4-15.0) % Plt Count (117-477) x10(3)uL MPV (6.7-11.0) fL Add Manual Diff Neutrophils % (Manual) (46-82) % Band Neutrophils % (0-6) % Lymphocytes % (Manual) (13-37) % Monocytes % (Manual) (4-12) % Metamyelocytes % (0-0) % Myelocytes % (0-0) % Anisocytosis Sodium (135-145) mmol/L Potassium (3.5-5.3) mmol/L Chloride (100-110) mmol/L Carbon Dioxide (21-32) mmol/L BUN (7-18) mg/dL Creatinine (0.70-1.30) mg/dL Est Cr Clr Drug Dosing mL/min Estimated GFR (MDRD) (>60) BUN/Creatinine Ratio (9-20) Glucose (80-116) mg/dL POC Glucose (80-116) mg/dL Lactic Acid 3.9 H* (0.4-2.0) mmol/L Calcium (8.6-10.2) mg/dL Total Bilirubin (0.1-1.3) mg/dL AST (5-25) IU/L ALT (12-36) U/L Alkaline Phosphatase (56-112) IU/L Troponin I 52.2 (4.0-60.3) pg/mL C-Reactive Protein (0.5-0.9) mg/dL NT-Pro-B Natriuret Pep 2996 H* (<=125) pg/mL Total Protein (6.0-8.0) g/dL Albumin (3.5-5.2) g/dL Globulin g/dL Albumin/Globulin Ratio SARS-CoV-2 RNA ([facility]) Negative (NEGATIVE) 12/02/20 12/02/20 12/02/20 Range/Units 21:19 22:00 22:00 WBC 29.1 H (3.2-10.1) x10-3/uL RBC 4.85 (3.90-5.90) x10(6)uL Hgb 12.8 L (12.9-17.7) g/dL Hct 40.8 (38.3-50.1) % MCV 84.1 (80.8-98.7) fL MCH 26.5 L (27.0-33.3) pg MCHC 31.5 (28.7-35.3) g/dL RDW 15.7 H (12.4-15.0) % Plt Count 215 (117-477) x10(3)uL MPV 10.3 (6.7-11.0) fL Add Manual Diff Yes Neutrophils % (Manual) 70 (46-82) % Band Neutrophils % 21 H* (0-6) % Lymphocytes % (Manual) 3 L (13-37) % Monocytes % (Manual) 3 L (4-12) % Metamyelocytes % 2 H (0-0) % Myelocytes % 1 H (0-0) % Anisocytosis Sodium (135-145) mmol/L Potassium (3.5-5.3) mmol/L Chloride (100-110) mmol/L Carbon Dioxide (21-32) mmol/L BUN (7-18) mg/dL Creatinine (0.70-1.30) mg/dL Est Cr Clr Drug Dosing mL/min Estimated GFR (MDRD) (>60) BUN/Creatinine Ratio (9-20) Glucose (80-116) mg/dL POC Glucose 125 H (80-116) mg/dL Lactic Acid 2.7 H* (0.4-2.0) mmol/L Calcium (8.6-10.2) mg/dL Total Bilirubin (0.1-1.3) mg/dL AST (5-25) IU/L ALT (12-36) U/L Alkaline Phosphatase (56-112) IU/L Troponin I (4.0-60.3) pg/mL C-Reactive Protein (0.5-0.9) mg/dL NT-Pro-B Natriuret Pep (<=125) pg/mL Total Protein (6.0-8.0) g/dL Albumin (3.5-5.2) g/dL Globulin g/dL Albumin/Globulin Ratio SARS-CoV-2 RNA ([facility]) (NEGATIVE) 12/03/20 12/03/20 12/03/20 Range/Units 06:18 06:18 06:18 WBC 30.6 H* (3.2-10.1) x10-3/uL RBC 4.42 (3.90-5.90) x10(6)uL Hgb 11.8 L (12.9-17.7) g/dL Hct 36.8 L (38.3-50.1) % MCV 83.2 (80.8-98.7) fL MCH 26.7 L (27.0-33.3) pg MCHC 32.0 (28.7-35.3) g/dL RDW 15.6 H (12.4-15.0) % Plt Count 223 (117-477) x10(3)uL MPV 10.4 (6.7-11.0) fL Add Manual Diff Yes Neutrophils % (Manual) 70 (46-82) % Band Neutrophils % 23 H* (0-6) % Lymphocytes % (Manual) 2 L (13-37) % Monocytes % (Manual) 1 L (4-12) % Metamyelocytes % 4 H (0-0) % Myelocytes % (0-0) % Anisocytosis Few Sodium 138 (135-145) mmol/L Potassium 4.0 (3.5-5.3) mmol/L Chloride 99 L (100-110) mmol/L Carbon Dioxide 25 (21-32) mmol/L BUN 43 H D (7-18) mg/dL Creatinine 4.4 H* (0.70-1.30) mg/dL Est Cr Clr Drug Dosing 22.09 mL/min Estimated GFR (MDRD) 15 L (>60) BUN/Creatinine Ratio 9.8 (9-20) Glucose 136 H (80-116) mg/dL POC Glucose (80-116) mg/dL Lactic Acid 2.5 H* (0.4-2.0) mmol/L Calcium 7.6 L (8.6-10.2) mg/dL Total Bilirubin (0.1-1.3) mg/dL AST (5-25) IU/L ALT (12-36) U/L Alkaline Phosphatase (56-112) IU/L Troponin I (4.0-60.3) pg/mL C-Reactive Protein (0.5-0.9) mg/dL NT-Pro-B Natriuret Pep (<=125) pg/mL Total Protein (6.0-8.0) g/dL Albumin (3.5-5.2) g/dL Globulin g/dL Albumin/Globulin Ratio SARS-CoV-2 RNA ([facility]) (NEGATIVE) Result Diagrams: 12/03/20 06:18 12/03/20 06:18 Sepsis Event Note - Evaluation Sepsis Screening Result: Severe Sepsis Risk Current Stage of Sepsis: Severe Sepsis Possible Source of Sepsis: Skin/Soft Tissue - Focused Exam Sepsis Event Note Statement: Focused Sepsis Exam Completed Vital Signs: Vital Signs Temp Pulse Resp BP BP Pulse Ox 12/03/20 05:45 99.5 F 120 H 28 H 90/40 L 95 12/03/20 01:00 99 F 118 H 32 H 80/60 L 94 L Date Exam was Performed: 12/03/20 Time Exam was Performed: 08:34 - Problem List & Annotations (1) Cellulitis SNOMED Code(s): 148405044 Code(s): L03.90 - CELLULITIS, UNSPECIFIED Status: Acute Current Visit: [facility] (2) Chronic acquired lymphedema SNOMED Code(s): 02179951 Code(s): I89.0 - LYMPHEDEMA, NOT ELSEWHERE CLASSIFIED Status: Acute Current Visit: Yes (3) Obesity SNOMED Code(s): 795541260, 380728089 Code(s): E66.9 - OBESITY, UNSPECIFIED Status: Acute Current Visit: Yes (4) History of MRSA infection SNOMED Code(s): 599271677, 703605536 Code(s): Z86.14 - PERSONAL HISTORY OF METHICILLIN RESIS STAPH INFECTION Status: Acute Current Visit: Yes (5) Palliative care status SNOMED Code(s): 165297348 Code(s): Z51.5 - ENCOUNTER FOR PALLIATIVE CARE Status: Acute Current Visit: Yes (6) Sepsis SNOMED Code(s): 93887834 Code(s): A41.9 - SEPSIS, UNSPECIFIED ORGANISM Status: Acute Current Visit: Yes (7) ATR (acute kidney injury) SNOMED Code(s): 39161395, 98667650 Code(s): N17.9 - ACUTE KIDNEY FAILURE, UNSPECIFIED Status: Acute Current Visit: Yes (8) DM2 (diabetes mellitus, type 2) SNOMED Code(s): 86248073 Code(s): E11.9 - TYPE 2 DIABETES MELLITUS WITHOUT COMPLICATIONS Status: Acute Current Visit: Yes - Problem List Review Problem List Initiated/Reviewed/Updated: Yes - My Orders Last 24 Hours: My Active Orders 12/02/20 17:00 Pharmacy to Dose - Vancomycin 1 dose .XX ASDIRECTED VANCOmycin 2 GM/400 ML 2 gm Premix Bag 1 bag IV Q12H 12/02/20 17:20 CULTURE ROUTINE + SMEAR [RM] Routine 12/02/20 17:22 Blood Culture x2 Reflex Set [OM.PC] Urgent 12/02/20 17:40 CULTURE BLOOD [BC] Urgent 12/02/20 17:45 CULTURE BLOOD [BC] Urgent 12/02/20 21:30 GLUCOSE,POC [POC] QID 12/02/20 21:57 POC Glucose [Blood Glucose Check, Bedside] [RC] 07,11,17,12/04/20 04:30 VANCOMYCIN TROUGH [CHEM] Timed 12/04/20 20:02 GLUCOSE,POC [POC] QID 12/05/20 20:02 GLUCOSE,POC [POC] QID 12/06/20 20:02 GLUCOSE,POC [POC] QID 12/07/20 20:02 GLUCOSE,POC [POC] QID 12/08/20 20:02 GLUCOSE,POC [POC] QID 12/09/20 20:02 GLUCOSE,POC [POC] QID 12/10/20 20:02 GLUCOSE,POC [POC] QID 12/11/20 20:02 GLUCOSE,POC [POC] QID 12/12/20 20:02 GLUCOSE,POC [POC] QID 12/13/20 20:02 GLUCOSE,POC [POC] QID 12/14/20 20:02 GLUCOSE,POC [POC] QID 12/15/20 20:02 GLUCOSE,POC [POC] QID 12/16/20 20:02 GLUCOSE,POC [POC] QID 12/17/20 20:02 GLUCOSE,POC [POC] QID 12/18/20 20:02 GLUCOSE,POC [POC] QID 12/19/20 20:02 GLUCOSE,POC [POC] QID 12/20/20 20:02 GLUCOSE,POC [POC] QID - Plan Plan:: 1. Check tomorrow to the ER doc last night about his vitals and then I ordered lactic acids. 2. Last night he was reportedly lost IV access and tried many times. Anesthesia got 1 his abdomen and then he got up and it fell out. So they got another one with a 22-gauge and there only to give him 200 cc an hour. 3. Creatinine is worsening up to 4.6 4. I called [facility] and he is on the waiting list I called [facility] and they may be able to take him this afternoon. 5. Believe this patient is septic and needs lots of fluids. He is probably third spacing therefore the fluids are the most important. He is on Vanco and Zosyn which should cover his cellulitis and sepsis. Discussed with ID [id number]. We are attempting to get IV access again with nurse or anesthesia. If I am not able to do better I may consider doing a feeding tube to get fluids in him until I can transfer him or stabilize him. 7. Repeat labs later today. 8. Blood cultures pending 9. Did discuss with surgery and that for her line. They said is too high risk and needs IR. Therefore I am in a dilemma because I cannot send him anywhere is or not excepting so I have to do some creative thinking when he gets the fluids. Hopefully we get IV in and wait for [facility] to accept.
[2020-12-03] MEDS ORDERED: Non-Formulary Medication 1 Each (Liraglutide [Victoza] 18 MG/3 ML Pen) SQ SCH (09:00)
--- NOTE | 2020-12-03 09:01 | PCM.PN ---
- General Info Date of Service: 12/03/20 Admission Dx/Problem (Free Text): Previous note. - Patient Data Vitals - Most Recent: Last Vital Signs Temp 99.5 F 12/03/20 05:45 Pulse 120 H 12/03/20 05:45 Resp 28 H 12/03/20 05:45 BP 90/40 L 12/03/20 05:45 Pulse Ox 95 12/03/20 05:45 Weight - Most Recent: 599 lb 6.4 oz I&O - Last 24 Hours: Intake & Output 12/02/20 12/03/20 12/03/20 22:59 06:59 14:59 Intake Total 700 300 Output Total 200 Balance 700 100 Lab Results Last 24 Hours: Laboratory Results - last 24 hr 12/02/20 12/02/20 12/02/20 Range/Units 06:35 06:35 06:35 WBC (3.2-10.1) x10-3/uL RBC (3.90-5.90) x10(6)uL Hgb (12.9-17.7) g/dL Hct (38.3-50.1) % MCV (80.8-98.7) fL MCH (27.0-33.3) pg MCHC (28.7-35.3) g/dL RDW (12.4-15.0) % Plt Count (117-477) x10(3)uL MPV (6.7-11.0) fL Add Manual Diff Neutrophils % (Manual) 60 (46-82) % Band Neutrophils % 27 H* (0-6) % Lymphocytes % (Manual) 4 L (13-37) % Monocytes % (Manual) 5 (4-12) % Metamyelocytes % 2 H (0-0) % Myelocytes % 2 H (0-0) % Anisocytosis Sodium 140 (135-145) mmol/L Potassium 3.4 L (3.5-5.3) mmol/L Chloride 101 D (100-110) mmol/L Carbon Dioxide 24 (21-32) mmol/L BUN 23 H D (7-18) mg/dL Creatinine 2.6 H* (0.70-1.30) mg/dL Est Cr Clr Drug Dosing 37.39 mL/min Estimated GFR (MDRD) 27 L (>60) BUN/Creatinine Ratio 8.8 L (9-20) Glucose 154 H (80-116) mg/dL POC Glucose (80-116) mg/dL Lactic Acid (0.4-2.0) mmol/L Calcium 8.1 L (8.6-10.2) mg/dL Total Bilirubin 1.0 (0.1-1.3) mg/dL AST 20 (5-25) IU/L ALT 24 D (12-36) U/L Alkaline Phosphatase 68 (56-112) IU/L Troponin I (4.0-60.3) pg/mL C-Reactive Protein 16.4 H* (0.5-0.9) mg/dL NT-Pro-B Natriuret Pep (<=125) pg/mL Total Protein 6.7 (6.0-8.0) g/dL Albumin 2.4 L (3.5-5.2) g/dL Globulin 4.3 g/dL Albumin/Globulin Ratio 0.6 SARS-CoV-2 RNA ([facility]) (NEGATIVE) 12/02/20 12/02/20 12/02/20 Range/Units 06:35 10:18 17:40 WBC (3.2-10.1) x10-3/uL RBC (3.90-5.90) x10(6)uL Hgb (12.9-17.7) g/dL Hct (38.3-50.1) % MCV (80.8-98.7) fL MCH (27.0-33.3) pg MCHC (28.7-35.3) g/dL RDW (12.4-15.0) % Plt Count (117-477) x10(3)uL MPV (6.7-11.0) fL Add Manual Diff Neutrophils % (Manual) (46-82) % Band Neutrophils % (0-6) % Lymphocytes % (Manual) (13-37) % Monocytes % (Manual) (4-12) % Metamyelocytes % (0-0) % Myelocytes % (0-0) % Anisocytosis Sodium (135-145) mmol/L Potassium (3.5-5.3) mmol/L Chloride (100-110) mmol/L Carbon Dioxide (21-32) mmol/L BUN (7-18) mg/dL Creatinine (0.70-1.30) mg/dL Est Cr Clr Drug Dosing mL/min Estimated GFR (MDRD) (>60) BUN/Creatinine Ratio (9-20) Glucose (80-116) mg/dL POC Glucose (80-116) mg/dL Lactic Acid 3.9 H* (0.4-2.0) mmol/L Calcium (8.6-10.2) mg/dL Total Bilirubin (0.1-1.3) mg/dL AST (5-25) IU/L ALT (12-36) U/L Alkaline Phosphatase (56-112) IU/L Troponin I 52.2 (4.0-60.3) pg/mL C-Reactive Protein (0.5-0.9) mg/dL NT-Pro-B Natriuret Pep 2996 H* (<=125) pg/mL Total Protein (6.0-8.0) g/dL Albumin (3.5-5.2) g/dL Globulin g/dL Albumin/Globulin Ratio SARS-CoV-2 RNA ([facility]) Negative (NEGATIVE) 12/02/20 12/02/20 12/02/20 Range/Units 21:19 22:00 22:00 WBC 29.1 H (3.2-10.1) x10-3/uL RBC 4.85 (3.90-5.90) x10(6)uL Hgb 12.8 L (12.9-17.7) g/dL Hct 40.8 (38.3-50.1) % MCV 84.1 (80.8-98.7) fL MCH 26.5 L (27.0-33.3) pg MCHC 31.5 (28.7-35.3) g/dL RDW 15.7 H (12.4-15.0) % Plt Count 215 (117-477) x10(3)uL MPV 10.3 (6.7-11.0) fL Add Manual Diff Yes Neutrophils % (Manual) 70 (46-82) % Band Neutrophils % 21 H* (0-6) % Lymphocytes % (Manual) 3 L (13-37) % Monocytes % (Manual) 3 L (4-12) % Metamyelocytes % 2 H (0-0) % Myelocytes % 1 H (0-0) % Anisocytosis Sodium (135-145) mmol/L Potassium (3.5-5.3) mmol/L Chloride (100-110) mmol/L Carbon Dioxide (21-32) mmol/L BUN (7-18) mg/dL Creatinine (0.70-1.30) mg/dL Est Cr Clr Drug Dosing mL/min Estimated GFR (MDRD) (>60) BUN/Creatinine Ratio (9-20) Glucose (80-116) mg/dL POC Glucose 125 H (80-116) mg/dL Lactic Acid 2.7 H* (0.4-2.0) mmol/L Calcium (8.6-10.2) mg/dL Total Bilirubin (0.1-1.3) mg/dL AST (5-25) IU/L ALT (12-36) U/L Alkaline Phosphatase (56-112) IU/L Troponin I (4.0-60.3) pg/mL C-Reactive Protein (0.5-0.9) mg/dL NT-Pro-B Natriuret Pep (<=125) pg/mL Total Protein (6.0-8.0) g/dL Albumin (3.5-5.2) g/dL Globulin g/dL Albumin/Globulin Ratio SARS-CoV-2 RNA ([facility]) (NEGATIVE) 12/03/20 12/03/20 12/03/20 Range/Units 06:18 06:18 06:18 WBC 30.6 H* (3.2-10.1) x10-3/uL RBC 4.42 (3.90-5.90) x10(6)uL Hgb 11.8 L (12.9-17.7) g/dL Hct 36.8 L (38.3-50.1) % MCV 83.2 (80.8-98.7) fL MCH 26.7 L (27.0-33.3) pg MCHC 32.0 (28.7-35.3) g/dL RDW 15.6 H (12.4-15.0) % Plt Count 223 (117-477) x10(3)uL MPV 10.4 (6.7-11.0) fL Add Manual Diff Yes Neutrophils % (Manual) 70 (46-82) % Band Neutrophils % 23 H* (0-6) % Lymphocytes % (Manual) 2 L (13-37) % Monocytes % (Manual) 1 L (4-12) % Metamyelocytes % 4 H (0-0) % Myelocytes % (0-0) % Anisocytosis Few Sodium 138 (135-145) mmol/L Potassium 4.0 (3.5-5.3) mmol/L Chloride 99 L (100-110) mmol/L Carbon Dioxide 25 (21-32) mmol/L BUN 43 H D (7-18) mg/dL Creatinine 4.4 H* (0.70-1.30) mg/dL Est Cr Clr Drug Dosing 22.09 mL/min Estimated GFR (MDRD) 15 L (>60) BUN/Creatinine Ratio 9.8 (9-20) Glucose 136 H (80-116) mg/dL POC Glucose (80-116) mg/dL Lactic Acid 2.5 H* (0.4-2.0) mmol/L Calcium 7.6 L (8.6-10.2) mg/dL Total Bilirubin (0.1-1.3) mg/dL AST (5-25) IU/L ALT (12-36) U/L Alkaline Phosphatase (56-112) IU/L Troponin I (4.0-60.3) pg/mL C-Reactive Protein (0.5-0.9) mg/dL NT-Pro-B Natriuret Pep (<=125) pg/mL Total Protein (6.0-8.0) g/dL Albumin (3.5-5.2) g/dL Globulin g/dL Albumin/Globulin Ratio SARS-CoV-2 RNA ([facility]) (NEGATIVE) Med Orders - Current: Current Medications Hydrocodone Bitart/Acetaminophen (Acetaminophen/Hydrocodone 325-5 Mg Tab) 2 tab PO Q4H PRN PRN Reason: Pain (moderate 4-6) Enoxaparin Sodium (Enoxaparin 40 Mg/0.4 Ml Syringe) 40 mg SUBCUT Q12H [facility] Last Admin: 12/03/20 01:00 Dose: 40 mg Documented by: Piperacillin Sod/Tazobactam (Sod 4.5 gm/ Sodium Chloride) 100 mls @ 200 mls/hr IV Q6H [facility] Last Admin: 12/03/20 03:55 Dose: 200 mls/hr Documented by: Vancomycin HCl 2 gm/ Premix 400 mls @ 200 mls/hr IV Q12H [facility] Last Admin: 12/03/20 05:13 Dose: 200 mls/hr Documented by: Sodium Chloride (Normal Saline) 1,000 mls @ 200 mls/hr IV ASDIRECTED [facility] Last Admin: 12/03/20 03:35 Dose: 200 mls/hr Documented by: Morphine Sulfate (Morphine 2 Mg/Ml Syringe) 2 mg IVPUSH Q2H PRN PRN Reason: Pain (severe 7-10) Non-Formulary Medication (Liraglutide [Victoza]) 1.8 mg SQ DAILY [facility] Ondansetron HCl (Ondansetron 4 Mg/2 Ml Sdv) 4 mg IV Q4H PRN PRN Reason: Nausea/Vomiting Last Admin: 12/03/20 08:07 Dose: 4 mg Documented by: Senna/Docusate Sodium (Docusate Sodium/Sennosides 50-8.6 Mg Tab) 1 tab PO BID PRN PRN Reason: Constipation Sodium Chloride (Sodium Chloride 0.9% 10 Ml Syringe) 10 ml FLUSH ASDIRECTED PRN PRN Reason: Keep Vein Open Last Admin: 12/02/20 16:42 Dose: 10 ml Documented by: Vancomycin HCl (Pharmacy To Dose - Vancomycin) 1 dose .XX ASDIRECTED [facility] Discontinued Medications Piperacillin Sod/Tazobactam (Sod 4.5 gm/ Sodium Chloride) 100 mls @ 200 mls/hr IV Q6H [facility] Last Admin: 12/02/20 10:17 Dose: 200 mls/hr Documented by: Sodium Chloride (Normal Saline) 1,000 mls @ 150 mls/hr IV ASDIRECTED [facility] Last Admin: 12/02/20 17:44 Dose: 150 mls/hr Documented by: Sodium Chloride (Normal Saline) 500 mls @ 999 mls/hr IV .BOLUS ONE Stop: 12/02/20 18:08 Last Admin: 12/02/20 17:43 Dose: 999 mls/hr Documented by: Sodium Chloride (Normal Saline) 1,000 mls @ 999 mls/hr IV .BOLUS ONE Stop: 12/02/20 21:09 Last Admin: 12/02/20 22:58 Dose: Not Given Documented by: Oxycodone/Acetaminophen (Acetaminophen/Oxycodone 325-5 Mg Tab) 2 tab PO NOW STA Stop: 12/02/20 08:40 Last Admin: 12/02/20 08:55 Dose: 2 tab Documented by: Tranexamic Acid (Tranexamic Acid 1,000 Mg/10 Ml Amp) 500 mg TOP NOW STA Stop: 12/02/20 06:16 - Exam General: Alert, Oriented, Cooperative - Patient Data Lab Results Last 24 hrs: Laboratory Results - last 24 hr 12/02/20 12/02/20 12/02/20 Range/Units 06:35 06:35 06:35 WBC (3.2-10.1) x10-3/uL RBC (3.90-5.90) x10(6)uL Hgb (12.9-17.7) g/dL Hct (38.3-50.1) % MCV (80.8-98.7) fL MCH (27.0-33.3) pg MCHC (28.7-35.3) g/dL RDW (12.4-15.0) % Plt Count (117-477) x10(3)uL MPV (6.7-11.0) fL Add Manual Diff Neutrophils % (Manual) 60 (46-82) % Band Neutrophils % 27 H* (0-6) % Lymphocytes % (Manual) 4 L (13-37) % Monocytes % (Manual) 5 (4-12) % Metamyelocytes % 2 H (0-0) % Myelocytes % 2 H (0-0) % Anisocytosis Sodium 140 (135-145) mmol/L Potassium 3.4 L (3.5-5.3) mmol/L Chloride 101 D (100-110) mmol/L Carbon Dioxide 24 (21-32) mmol/L BUN 23 H D (7-18) mg/dL Creatinine 2.6 H* (0.70-1.30) mg/dL Est Cr Clr Drug Dosing 37.39 mL/min Estimated GFR (MDRD) 27 L (>60) BUN/Creatinine Ratio 8.8 L (9-20) Glucose 154 H (80-116) mg/dL POC Glucose (80-116) mg/dL Lactic Acid (0.4-2.0) mmol/L Calcium 8.1 L (8.6-10.2) mg/dL Total Bilirubin 1.0 (0.1-1.3) mg/dL AST 20 (5-25) IU/L ALT 24 D (12-36) U/L Alkaline Phosphatase 68 (56-112) IU/L Troponin I (4.0-60.3) pg/mL C-Reactive Protein 16.4 H* (0.5-0.9) mg/dL NT-Pro-B Natriuret Pep (<=125) pg/mL Total Protein 6.7 (6.0-8.0) g/dL Albumin 2.4 L (3.5-5.2) g/dL Globulin 4.3 g/dL Albumin/Globulin Ratio 0.6 SARS-CoV-2 RNA ([facility]) (NEGATIVE) 12/02/20 12/02/20 12/02/20 Range/Units 06:35 10:18 17:40 WBC (3.2-10.1) x10-3/uL RBC (3.90-5.90) x10(6)uL Hgb (12.9-17.7) g/dL Hct (38.3-50.1) % MCV (80.8-98.7) fL MCH (27.0-33.3) pg MCHC (28.7-35.3) g/dL RDW (12.4-15.0) % Plt Count (117-477) x10(3)uL MPV (6.7-11.0) fL Add Manual Diff Neutrophils % (Manual) (46-82) % Band Neutrophils % (0-6) % Lymphocytes % (Manual) (13-37) % Monocytes % (Manual) (4-12) % Metamyelocytes % (0-0) % Myelocytes % (0-0) % Anisocytosis Sodium (135-145) mmol/L Potassium (3.5-5.3) mmol/L Chloride (100-110) mmol/L Carbon Dioxide (21-32) mmol/L BUN (7-18) mg/dL Creatinine (0.70-1.30) mg/dL Est Cr Clr Drug Dosing mL/min Estimated GFR (MDRD) (>60) BUN/Creatinine Ratio (9-20) Glucose (80-116) mg/dL POC Glucose (80-116) mg/dL Lactic Acid 3.9 H* (0.4-2.0) mmol/L Calcium (8.6-10.2) mg/dL Total Bilirubin (0.1-1.3) mg/dL AST (5-25) IU/L ALT (12-36) U/L Alkaline Phosphatase (56-112) IU/L Troponin I 52.2 (4.0-60.3) pg/mL C-Reactive Protein (0.5-0.9) mg/dL NT-Pro-B Natriuret Pep 2996 H* (<=125) pg/mL Total Protein (6.0-8.0) g/dL Albumin (3.5-5.2) g/dL Globulin g/dL Albumin/Globulin Ratio SARS-CoV-2 RNA ([facility]) Negative (NEGATIVE) 12/02/20 12/02/20 12/02/20 Range/Units 21:19 22:00 22:00 WBC 29.1 H (3.2-10.1) x10-3/uL RBC 4.85 (3.90-5.90) x10(6)uL Hgb 12.8 L (12.9-17.7) g/dL Hct 40.8 (38.3-50.1) % MCV 84.1 (80.8-98.7) fL MCH 26.5 L (27.0-33.3) pg MCHC 31.5 (28.7-35.3) g/dL RDW 15.7 H (12.4-15.0) % Plt Count 215 (117-477) x10(3)uL MPV 10.3 (6.7-11.0) fL Add Manual Diff Yes Neutrophils % (Manual) 70 (46-82) % Band Neutrophils % 21 H* (0-6) % Lymphocytes % (Manual) 3 L (13-37) % Monocytes % (Manual) 3 L (4-12) % Metamyelocytes % 2 H (0-0) % Myelocytes % 1 H (0-0) % Anisocytosis Sodium (135-145) mmol/L Potassium (3.5-5.3) mmol/L Chloride (100-110) mmol/L Carbon Dioxide (21-32) mmol/L BUN (7-18) mg/dL Creatinine (0.70-1.30) mg/dL Est Cr Clr Drug Dosing mL/min Estimated GFR (MDRD) (>60) BUN/Creatinine Ratio (9-20) Glucose (80-116) mg/dL POC Glucose 125 H (80-116) mg/dL Lactic Acid 2.7 H* (0.4-2.0) mmol/L Calcium (8.6-10.2) mg/dL Total Bilirubin (0.1-1.3) mg/dL AST (5-25) IU/L ALT (12-36) U/L Alkaline Phosphatase (56-112) IU/L Troponin I (4.0-60.3) pg/mL C-Reactive Protein (0.5-0.9) mg/dL NT-Pro-B Natriuret Pep (<=125) pg/mL Total Protein (6.0-8.0) g/dL Albumin (3.5-5.2) g/dL Globulin g/dL Albumin/Globulin Ratio SARS-CoV-2 RNA ([facility]) (NEGATIVE) 12/03/20 12/03/20 12/03/20 Range/Units 06:18 06:18 06:18 WBC 30.6 H* (3.2-10.1) x10-3/uL RBC 4.42 (3.90-5.90) x10(6)uL Hgb 11.8 L (12.9-17.7) g/dL Hct 36.8 L (38.3-50.1) % MCV 83.2 (80.8-98.7) fL MCH 26.7 L (27.0-33.3) pg MCHC 32.0 (28.7-35.3) g/dL RDW 15.6 H (12.4-15.0) % Plt Count 223 (117-477) x10(3)uL MPV 10.4 (6.7-11.0) fL Add Manual Diff Yes Neutrophils % (Manual) 70 (46-82) % Band Neutrophils % 23 H* (0-6) % Lymphocytes % (Manual) 2 L (13-37) % Monocytes % (Manual) 1 L (4-12) % Metamyelocytes % 4 H (0-0) % Myelocytes % (0-0) % Anisocytosis Few Sodium 138 (135-145) mmol/L Potassium 4.0 (3.5-5.3) mmol/L Chloride 99 L (100-110) mmol/L Carbon Dioxide 25 (21-32) mmol/L BUN 43 H D (7-18) mg/dL Creatinine 4.4 H* (0.70-1.30) mg/dL Est Cr Clr Drug Dosing 22.09 mL/min Estimated GFR (MDRD) 15 L (>60) BUN/Creatinine Ratio 9.8 (9-20) Glucose 136 H (80-116) mg/dL POC Glucose (80-116) mg/dL Lactic Acid 2.5 H* (0.4-2.0) mmol/L Calcium 7.6 L (8.6-10.2) mg/dL Total Bilirubin (0.1-1.3) mg/dL AST (5-25) IU/L ALT (12-36) U/L Alkaline Phosphatase (56-112) IU/L Troponin I (4.0-60.3) pg/mL C-Reactive Protein (0.5-0.9) mg/dL NT-Pro-B Natriuret Pep (<=125) pg/mL Total Protein (6.0-8.0) g/dL Albumin (3.5-5.2) g/dL Globulin g/dL Albumin/Globulin Ratio SARS-CoV-2 RNA ([facility]) (NEGATIVE) Result Diagrams: 12/03/20 06:18 12/03/20 06:18 Sepsis Event Note - Evaluation Sepsis Screening Result: Severe Sepsis Risk - Focused Exam Vital Signs: Vital Signs Temp Pulse Resp BP BP Pulse Ox 12/03/20 05:45 99.5 F 120 H 28 H 90/40 L 95 12/03/20 01:00 99 F 118 H 32 H 80/60 L 94 L - Problem List & Annotations (1) Cellulitis SNOMED Code(s): 499303502 Code(s): L03.90 - CELLULITIS, UNSPECIFIED Status: Acute Current Visit: Yes (2) Chronic acquired lymphedema SNOMED Code(s): 24416051 Code(s): I89.0 - LYMPHEDEMA, NOT ELSEWHERE CLASSIFIED Status: Acute Current Visit: Yes (3) Obesity SNOMED Code(s): 528098379, 275268554 Code(s): E66.9 - OBESITY, UNSPECIFIED Status: Acute Current Visit: Yes (4) History of MRSA infection SNOMED Code(s): 610503478, 571302139 Code(s): Z86.14 - PERSONAL HISTORY OF METHICILLIN RESIS STAPH INFECTION Status: Acute Current Visit: Yes (5) Palliative care status SNOMED Code(s): 120490443 Code(s): Z51.5 - ENCOUNTER FOR PALLIATIVE CARE Status: Acute Current Visit: Yes (6) ART (acute kidney injury) SNOMED Code(s): 40170481, 98390944 Code(s): N17.9 - ACUTE KIDNEY FAILURE, UNSPECIFIED Status: Acute Current Visit: Yes (7) DM2 (diabetes mellitus, type 2) SNOMED Code(s): 03006442 Code(s): E11.9 - TYPE 2 DIABETES MELLITUS WITHOUT COMPLICATIONS Status: Acute Current Visit: Yes (8) Severe sepsis SNOMED Code(s): 73713271 Code(s): A41.9 - SEPSIS, UNSPECIFIED ORGANISM; R65.20 - SEVERE SEPSIS WITHOUT SEPTIC SHOCK Status: Acute Current Visit: Yes - Problem List Review Problem List Initiated/Reviewed/Updated: Yes - My Orders Last 24 Hours: My Active Orders 12/02/20 17:00 Pharmacy to Dose - Vancomycin 1 dose .XX ASDIRECTED VANCOmycin 2 GM/400 ML 2 gm Premix Bag 1 bag IV Q12H 12/02/20 17:20 CULTURE ROUTINE + SMEAR [RM] Routine 12/02/20 17:22 Blood Culture x2 Reflex Set [OM.PC] Urgent 12/02/20 17:40 CULTURE BLOOD [BC] Urgent 12/02/20 17:45 CULTURE BLOOD [BC] Urgent 12/02/20 21:30 GLUCOSE,POC [POC] QID 12/02/20 21:57 POC Glucose [Blood Glucose Check, Bedside] [RC] 07,11,17,21 12/04/20 04:30 VANCOMYCIN TROUGH [CHEM] Timed 12/04/20 20:02 GLUCOSE,POC [POC] QID 12/05/20 20:02 GLUCOSE,POC [POC] QID 12/06/20 20:02 GLUCOSE,POC [POC] QID 12/07/20 20:02 GLUCOSE,POC [POC] QID 12/08/20 20:02 GLUCOSE,POC [POC] QID 12/09/20 20:02 GLUCOSE,POC [POC] QID 12/10/20 20:02 GLUCOSE,POC [POC] QID 12/11/20 20:02 GLUCOSE,POC [POC] QID 12/12/20 20:02 GLUCOSE,POC [POC] QID 12/13/20 20:02 GLUCOSE,POC [POC] QID 12/14/20 20:02 GLUCOSE,POC [POC] QID 12/15/20 20:02 GLUCOSE,POC [POC] QID 12/16/20 20:02 GLUCOSE,POC [POC] QID 12/17/20 20:02 GLUCOSE,POC [POC] QID 12/18/20 20:02 GLUCOSE,POC [POC] QID 12/19/20 20:02 GLUCOSE,POC [POC] QID 12/20/20 20:02 GLUCOSE,POC [POC] QID - Plan Plan:: 1. Check tomorrow to the ER doc last night about his vitals and then I ordered lactic acids. 2. Last night he was reportedly lost IV access and tried many times. Anesthesia got 1 his abdomen and then he got up and it fell out. So they got another one with a 22-gauge and there only to give him 200 cc an hour. 3. Creatinine is worsening up to 4.6 4. I called [facility] and he is on the waiting list I called [facility] and they may be able to take him this afternoon. 5. Believe this patient is septic and needs lots of fluids. He is probably third spacing therefore the fluids are the most important. He is on Vanco and Zosyn which should cover his cellulitis and sepsis. Discussed with ID [id number]. We are attempting to get IV access again with nurse or anesthesia. If I am not able to do better I may consider doing a feeding tube to get fluids in him until I can transfer him or stabilize him. 7. Repeat labs later today. 8. Blood cultures pending 9. Did discuss with surgery and that for her line. They said is too high risk and needs IR. Therefore I am in a dilemma because I cannot send him anywhere is or not excepting so I have to do some creative thinking when he gets the fluids. Hopefully we get IV in and wait for [facility] to accept.
[2020-12-03] MEDS ORDERED: DOPamine/Dextrose 5%-Water 400 MG/250 ML BAG IV SCH (09:45)
--- NOTE | 2020-12-03 10:04 | PCM.SN.2 ---
- Free Text/Narrative Note: Discussed code level status with the patient again. He does not want to be intubated or have resuscitation. Asked him if he wanted me to call anyone at this time and he said not at this time. I told him he could from this and he says he understands it. I called [facility] again which is a second time and told him that he is now on a dopamine drip which we just started to his blood pressure. And they can accept him. [facility] there is a waiting list. [facility] denied them. Anesthesia got a IV in the stomach again so now I can give him about 700 cc an hour plus a dopamine drip plus antibiotics and I am hoping this will stabilize the patient. Time Documentation
--- NOTE | 2020-12-03 10:38 | PCM.SN.2 ---
- Free Text/Narrative Note: ANESTHESIA SERVICES Date:12/03/2020 Time: 902 to 914 Dx: Very Poor Venous Access and Hypotensive Rx: Obtain Peripheral Venous Access I was called by the floor RN to place another IV because of hypotension and dislodgement of the other. I found another dilated RLQ mid line abdominal vein. I prepped the area when several alcohol wipes. I inserted and advanced a BD Insyte Autoguard BC Winged 20 Ga. X 1.16 In. Catheter with one attempt. It was flushed with 10 ml's of Normal Saline easily and without complications. I placed an Op-Site dressing on and generously taped the site secure. The patient tolerated this well. Sadiq Pride CRNA, MHA Time Documentation
[2020-12-03] MEDS ORDERED: Lidocaine 2% HCl 6 ML JEL.PF.APP ONE ×2 (11:36→11:38)
[2020-12-03] MEDS: Acetaminophen/HYDROcodone 325-5 MG Tab PO PRN (12:11)
[2020-12-03] MEDS ORDERED: Norepinephrine 4 MG in Dextrose 5% in Water 246 ML IV SCH ×2 (12:45)
[2020-12-03] MEDS ORDERED: Sodium Chloride 0.9% 500 ML IV ONE ×2 (15:18→17:08)
[2020-12-03] MEDS ORDERED: Sodium Chloride 0.65% Nasal Spray 45 ML Bottle NAS PRN (16:59)
[2020-12-03] MEDS ORDERED: Glucagon,Human Recombinant 1 MG Vial IM PRN (17:01)
[2020-12-03] MEDS ORDERED: 50% Dextrose in Water 50 ML Syringe IVPUSH PRN (17:01)
[2020-12-03] MEDS: Insulin Lispro 100 Unit/ML 3 ML KwikPen SUBCUT SCH (18:05)
[2020-12-03] MEDS ORDERED: Acetaminophen 325 MG Tab PO PRN (18:07)
[2020-12-03] MEDS ORDERED: Albumin 25% 200 ML IV ONE (20:06)
[2020-12-03] MEDS: Albumin 25% 12.5 GM/50 ML BAG IV ONE (20:45)
[2020-12-03] MEDS: Albumin 25% 12.5 GM/50 ML BAG IV SCH ×6 (20:50→23:20)
[2020-12-04] MEDS: Enoxaparin 40 MG/0.4 ML Syringe SUBCUT SCH ×2 (00:43→13:34)
[2020-12-04] MEDS: Sodium Chloride 0.9% 1,000 ML IV SCH ×4 (03:07→17:43)
[2020-12-04] MEDS: Piperacillin/Tazobactam 4.5 GM in Sodium Chloride 0.9% 100 ML IV SCH (03:35)
[2020-12-04] MEDS ORDERED: Sodium Chloride 0.9% 10 ML Syringe FLUSH PRN (05:58)
[2020-12-04] MEDS: Sodium Chloride 0.9% 10 ML Syringe FLUSH PRN (06:07)
[2020-12-04] MEDS: Acetaminophen/HYDROcodone 325-5 MG Tab PO PRN ×2 (06:10→11:04)
[2020-12-04] MEDS: Insulin Lispro 100 Unit/ML 3 ML KwikPen SUBCUT SCH ×3 (08:01→17:41)
[2020-12-04] MEDS: VANCOmycin 2 GM/400 ML 2 GM in Premix Bag 1 BAG IV SCH (08:04)
[2020-12-04] MEDS: Albumin 25% 12.5 GM/50 ML BAG IV ONE (08:11)
[2020-12-04] MEDS: Piperacillin/Tazobactam 3.375 GM in Sodium Chloride 0.9% 50 ML IV SCH ×2 (10:09→16:25)
[2020-12-04] MEDS ORDERED: Doxycycline 100 MG in Sodium Chloride 0.9% 100 ML IV SCH (13:00)
--- NOTE | 2020-12-04 13:42 | PCM.DCSUM1 ---
Discharge Summary - Hospital Course HPI Initial Comments: 40-year-old male patient that has about 1 week history of left lower leg pain, red swollen, tender, weeping with serosanguineous fluid and a slight fever. Got worse today so he came into the ER. He denies chills, nausea, cough/cold symptoms or vomiting. He says he has had MRSA in the past. No injury to his leg that he knows of, no recent wound or scratching area. He also c/o dyspnea even with mild exertion, denies having any chest pain. He was seen in the clinic earlier in the week but no antibiotic was given. History of Diabetes on Victoza. Diagnosis: Stroke: No - Discharge Data Discharge Date: 12/04/20 Discharge Disposition: DC/Tfer to Acute Hospital 02 Condition: Good - Referral to Home Health Primary Care Physician: PCP None - Patient Summary/Data Hospital Course: He was admitted on 12/02 cellulitis, sepsis and acute renal failure. Doppler ultrasound in ER was negative for DVT. CXR was negative for pneumonia. Covid was negative. BNP 2996. WBC on admit was 29.3 went up to 30.6 and down to 23.5 today. Band neutrophils were 27 trending down to 23 and 17 today. Lactic acid was 3.9 on admission down to 0.9 today. CRP was 16.4 on admission. D dimer was 1.55. Urine showed some leukocyte esterase, protein and glucose but urine culture was negative. Blood culture no growth to date. Wound culture: heavy growth of staph aureus and beta Strep, not groupd A or B, ID pending for both organisms. He was started on Zosyn & Vancomycin in ER, trough today was 51.2. He had difficulty with IV access, anesthesia put in IVs twice. His creatinine went from 2.3 on admission to 4.4, 4.3 and 5.3 today. Potassium was 3.4 on admission and 4.2 today. He was started on dopamine drip 12/03 to help get his pressures up but he had worsening tachycardia so this was discontinued and Levophed started 12/03 1400 and was discontinued 12/03 2300. Once he got better IV access his IVF were increased, receiving 500 ml boluses and running at 500 ml/hr. He received 75 grams of Albumin overnight. Urine catheter was placed on admission, urine output declined from 300 ml, to 200 ml on 12/[address] Boateng tried to transfer patient yesterday but unable to find bed placement. [facility] did not have any availability today and called [facility], spoke with Dr Del Rosario who accepted patient in transfer, made NPO for anticipated IR procedure once gets to [place] for dialysis, will go by ground ambulance with bariatric capabilities. - Patient Instructions Diet: NPO Activity: As Tolerated Driving: Do Not Drive Other/Special Instructions: Transfer to [place] for higher level of care, dialysis candidate - Discharge Plan *PRESCRIPTION DRUG MONITORING PROGRAM REVIEWED*: Not Applicable *COPY OF PRESCRIPTION DRUG MONITORING REPORT IN PATIENT MARZENA: Not Applicable Home Medications: Home Meds Liraglutide [Victoza] 1.8 mg SQ DAILY 12/02/20 [History] Multivitamins [Tab-A-Sami] 1 tab PO DAILY 12/02/20 [History] Acetaminophen/HYDROcodone [HYDROcodone-Acetaminophen 5-325 MG *] 2 tab PO Q4H PRN each 12/04/20 [Rx] Docusate Sodium/Sennosides [Senna Plus] 1 tab PO BID PRN tablet 12/04/20 [Rx] Doxycycline [Vibramycin] 100 mg IV Q12H vial 12/04/20 [Rx] Enoxaparin [Lovenox] 40 mg SUBCUT Q12H syringe 12/04/20 [Rx] Ondansetron [Zofran] 4 mg IV Q4H PRN vial 12/04/20 [Rx] Piperacillin/Tazobactam [Zosyn] 3.375 gm IV Q6H vial 12/04/20 [Rx] Sodium Chloride 0.65% [Morales-Sanchez Nasal [place]] 0 ml CAS Q2H PRN bottle 12/04/20 [Rx] Sodium Chloride 0.9% [Saline Flush] 10 ml FLUSH ASDIRECTED PRN syringe 12/04/20 [Rx] Oxygen Therapy Mode: Nasal Cannula Oxygen Flow Rate (L/min): 2 Maintain SpO2% greater than: 90 Forms: ED Department Discharge Referrals: PCP,None [Primary Care Provider] - - Discharge Summary/Plan Comment DC Time >30 min.: No Total # of Minutes for Discharge Time: 25 min - General Info Date of Service: 12/04/20 Subjective Update: Pt states his leg pain is slightly improved. Denies any chest pain, shortness of breath the same. No appetite. He was bladder scanned due to decreased urine output only 8 ml overnight, had 19 ml residual. He had worsening tachycardia with dopamine drip yesterday so was changed to Levophed approximately 1400 and was discontinued last night. Blood pressures improved. No fever. - Patient Data Vitals - Most Recent: Last Vital Signs Temp 97.5 F 12/04/20 12:04 Pulse 103 H 12/04/20 12:04 Resp 15 12/04/20 12:04 BP 91/46 L 12/04/20 12:04 Pulse Ox 95 12/04/20 12:04 Weight - Most Recent: 622 lb 3 oz I&O - Last 24 hours: Intake & Output 12/03/20 12/04/20 12/04/20 22:59 06:59 14:59 Intake Total 2738 1149 360 Output Total 12 Balance 2716 1128 348 Lab Results - Last 24 hrs: Laboratory Results - last 24 hr 12/03/20 12/03/20 12/03/20 Range/Units 12:05 13:00 13:00 WBC (3.2-10.1) x10-3/uL RBC (3.90-5.90) x10(6)uL Hgb (12.9-17.7) g/dL Hct (38.3-50.1) % MCV (80.8-98.7) fL MCH (27.0-33.3) pg MCHC (28.7-35.3) g/dL RDW (12.4-15.0) % Plt Count (117-477) x10(3)uL MPV (6.7-11.0) fL Add Manual Diff Neutrophils % (Manual) (46-82) % Band Neutrophils % (0-6) % Lymphocytes % (Manual) (13-37) % Monocytes % (Manual) (4-12) % Eosinophils % (Manual) (0-5) % Metamyelocytes % (0-0) % Anisocytosis Sodium 138 (135-145) mmol/L Potassium 4.0 (3.5-5.3) mmol/L Chloride 102 (100-110) mmol/L Carbon Dioxide 21 (21-32) mmol/L BUN 45 H (7-18) mg/dL Creatinine 4.3 H* (0.70-1.30) mg/dL Est Cr Clr Drug Dosing 22.61 mL/min Estimated GFR (MDRD) 15 L (>60) BUN/Creatinine Ratio 10.5 (9-20) Glucose 143 H (80-116) mg/dL POC Glucose (80-116) mg/dL Lactic Acid 1.2 (0.4-2.0) mmol/L Calcium 6.9 L (8.6-10.2) mg/dL Total Bilirubin (0.1-1.3) mg/dL AST (5-25) IU/L ALT (12-36) U/L Alkaline Phosphatase (56-112) IU/L Total Protein (6.0-8.0) g/dL Albumin (3.5-5.2) g/dL Globulin g/dL Albumin/Globulin Ratio Urine Color Yellow (YELLOW) Urine Appearance Cloudy (CLEAR) Urine pH 5.0 (5.0-6.5) Ur Specific Vale 1.020 (1.010-1.025) Urine Protein 100 H (NEGATIVE) mg/dL Urine Glucose (UA) 50 H (NORMAL) mg/dL Urine Ketones Negative (NEGATIVE) mg/dL Urine Occult Blood Large H (NEGATIVE) Urine Nitrite Negative (NEGATIVE) Urine Bilirubin Negative (NEGATIVE) Urine Urobilinogen Normal (NEGATIVE) mg/dL Ur Leukocyte Esterase Small H (NEGATIVE) Urine RBC 30-40 H (0-5) Urine WBC 5-10 H (0-5) Ur Squamous Epith Cells Moderate H (NS,R,O) Urine Bacteria Many H (NS) Vancomycin Trough (<0.8) ug/mL 12/03/20 12/03/20 12/04/20 Range/Units 17:53 21:49 04:40 WBC (3.2-10.1) x10-3/uL RBC (3.90-5.90) x10(6)uL Hgb (12.9-17.7) g/dL Hct (38.3-50.1) % MCV (80.8-98.7) fL MCH (27.0-33.3) pg MCHC (28.7-35.3) g/dL RDW (12.4-15.0) % Plt Count (117-477) x10(3)uL MPV (6.7-11.0) fL Add Manual Diff Neutrophils % (Manual) (46-82) % Band Neutrophils % (0-6) % Lymphocytes % (Manual) (13-37) % Monocytes % (Manual) (4-12) % Eosinophils % (Manual) (0-5) % Metamyelocytes % (0-0) % Anisocytosis Sodium (135-145) mmol/L Potassium (3.5-5.3) mmol/L Chloride (100-110) mmol/L Carbon Dioxide (21-32) mmol/L BUN (7-18) mg/dL Creatinine (0.70-1.30) mg/dL Est Cr Clr Drug Dosing mL/min Estimated GFR (MDRD) (>60) BUN/Creatinine Ratio (9-20) Glucose (80-116) mg/dL POC Glucose 125 H 124 H (80-116) mg/dL Lactic Acid (0.4-2.0) mmol/L Calcium (8.6-10.2) mg/dL Total Bilirubin (0.1-1.3) mg/dL AST (5-25) IU/L ALT (12-36) U/L Alkaline Phosphatase (56-112) IU/L Total Protein (6.0-8.0) g/dL Albumin (3.5-5.2) g/dL Globulin g/dL Albumin/Globulin Ratio Urine Color (YELLOW) Urine Appearance (CLEAR) Urine pH (5.0-6.5) Ur Specific Vale (1.010-1.025) Urine Protein (NEGATIVE) mg/dL Urine Glucose (UA) (NORMAL) mg/dL Urine Ketones (NEGATIVE) mg/dL Urine Occult Blood (NEGATIVE) Urine Nitrite (NEGATIVE) Urine Bilirubin (NEGATIVE) Urine Urobilinogen (NEGATIVE) mg/dL Ur Leukocyte Esterase (NEGATIVE) Urine RBC (0-5) Urine WBC (0-5) Ur Squamous Epith Cells (NS,R,O) Urine Bacteria (NS) Vancomycin Trough 51.2 H* (<0.8) ug/mL 12/04/20 12/04/20 12/04/20 Range/Units 04:40 04:40 04:40 WBC 23.5 H (3.2-10.1) x10-3/uL RBC 4.04 (3.90-5.90) x10(6)uL Hgb 10.6 L (12.9-17.7) g/dL Hct 33.6 L (38.3-50.1) % MCV 83.2 (80.8-98.7) fL MCH 26.3 L (27.0-33.3) pg MCHC 31.7 (28.7-35.3) g/dL RDW 15.9 H (12.4-15.0) % Plt Count 164 (117-477) x10(3)uL MPV 10.7 (6.7-11.0) fL Add Manual Diff Yes Neutrophils % (Manual) 64 (46-82) % Band Neutrophils % 17 H* (0-6) % Lymphocytes % (Manual) 8 L (13-37) % Monocytes % (Manual) 5 (4-12) % Eosinophils % (Manual) 2 (0-5) % Metamyelocytes % 4 H (0-0) % Anisocytosis Few Sodium 139 (135-145) mmol/L Potassium 4.2 (3.5-5.3) mmol/L Chloride 101 (100-110) mmol/L Carbon Dioxide 22 (21-32) mmol/L BUN 57 H D (7-18) mg/dL Creatinine 5.3 H* (0.70-1.30) mg/dL Est Cr Clr Drug Dosing 18.34 mL/min Estimated GFR (MDRD) 12 L (>60) BUN/Creatinine Ratio 10.8 (9-20) Glucose 132 H (80-116) mg/dL POC Glucose (80-116) mg/dL Lactic Acid 0.9 (0.4-2.0) mmol/L Calcium 7.1 L (8.6-10.2) mg/dL Total Bilirubin 0.7 (0.1-1.3) mg/dL AST 107 H D (5-25) IU/L ALT 32 D (12-36) U/L Alkaline Phosphatase 48 L (56-112) IU/L Total Protein 6.1 (6.0-8.0) g/dL Albumin 2.3 L (3.5-5.2) g/dL Globulin 3.8 g/dL Albumin/Globulin Ratio 0.6 Urine Color (YELLOW) Urine Appearance (CLEAR) Urine pH (5.0-6.5) Ur Specific Vale (1.010-1.025) Urine Protein (NEGATIVE) mg/dL Urine Glucose (UA) (NORMAL) mg/dL Urine Ketones (NEGATIVE) mg/dL Urine Occult Blood (NEGATIVE) Urine Nitrite (NEGATIVE) Urine Bilirubin (NEGATIVE) Urine Urobilinogen (NEGATIVE) mg/dL Ur Leukocyte Esterase (NEGATIVE) Urine RBC (0-5) Urine WBC (0-5) Ur Squamous Epith Cells (NS,R,O) Urine Bacteria (NS) Vancomycin Trough (<0.8) ug/mL 12/04/20 Range/Units 11:07 WBC (3.2-10.1) x10-3/uL RBC (3.90-5.90) x10(6)uL Hgb (12.9-17.7) g/dL Hct (38.3-50.1) % MCV (80.8-98.7) fL MCH (27.0-33.3) pg MCHC (28.7-35.3) g/dL RDW (12.4-15.0) % Plt Count (117-477) x10(3)uL MPV (6.7-11.0) fL Add Manual Diff Neutrophils % (Manual) (46-82) % Band Neutrophils % (0-6) % Lymphocytes % (Manual) (13-37) % Monocytes % (Manual) (4-12) % Eosinophils % (Manual) (0-5) % Metamyelocytes % (0-0) % Anisocytosis Sodium (135-145) mmol/L Potassium (3.5-5.3) mmol/L Chloride (100-110) mmol/L Carbon Dioxide (21-32) mmol/L BUN (7-18) mg/dL Creatinine (0.70-1.30) mg/dL Est Cr Clr Drug Dosing mL/min Estimated GFR (MDRD) (>60) BUN/Creatinine Ratio (9-20) Glucose (80-116) mg/dL POC Glucose 121 H (80-116) mg/dL Lactic Acid (0.4-2.0) mmol/L Calcium (8.6-10.2) mg/dL Total Bilirubin (0.1-1.3) mg/dL AST (5-25) IU/L ALT (12-36) U/L Alkaline Phosphatase (56-112) IU/L Total Protein (6.0-8.0) g/dL Albumin (3.5-5.2) g/dL Globulin g/dL Albumin/Globulin Ratio Urine Color (YELLOW) Urine Appearance (CLEAR) Urine pH (5.0-6.5) Ur Specific Vale (1.010-1.025) Urine Protein (NEGATIVE) mg/dL Urine Glucose (UA) (NORMAL) mg/dL Urine Ketones (NEGATIVE) mg/dL Urine Occult Blood (NEGATIVE) Urine Nitrite (NEGATIVE) Urine Bilirubin (NEGATIVE) Urine Urobilinogen (NEGATIVE) mg/dL Ur Leukocyte Esterase (NEGATIVE) Urine RBC (0-5) Urine WBC (0-5) Ur Squamous Epith Cells (NS,R,O) Urine Bacteria (NS) Vancomycin Trough (<0.8) ug/mL NIMA Results - Last 24 hrs: Microbiology 12/03/20 12:05 Urine Culture - Preliminary Urine, Catheterized No Growth 12/02/20 17:40 Aerobic Blood Culture - Preliminary Blood - Venous NO GROWTH AFTER 1 DAY Anaerobic Blood Culture - Preliminary NO GROWTH AFTER 1 DAY 12/02/20 17:45 Aerobic Blood Culture - Preliminary Blood - Venous - Lab Draw NO GROWTH AFTER 1 DAY Anaerobic Blood Culture - Preliminary NO GROWTH AFTER 1 DAY Med Orders - Current: Current Medications Acetaminophen (Acetaminophen 325 Mg Tab) 640 mg PO Q4H PRN PRN Reason: Pain Hydrocodone Bitart/Acetaminophen (Acetaminophen/Hydrocodone 325-5 Mg Tab) 2 tab PO Q4H PRN PRN Reason: Pain (moderate 4-6) Last Admin: 12/04/20 11:04 Dose: 2 tab Documented by: Dextrose/Water (50% Dextrose In Water 50 Ml Syringe) 50 ml IVPUSH ASDIRECTED PRN PRN Reason: Hypoglycemia Enoxaparin Sodium (Enoxaparin 40 Mg/0.4 Ml Syringe) 40 mg SUBCUT Q12H TONE Last Admin: 12/04/20 13:34 Dose: 40 mg Documented by: Glucagon (Glucagon,Human Recombinant 1 Mg Vial) 1 mg IM ASDIRECTED PRN PRN Reason: Hypoglycemia Sodium Chloride (Normal Saline) 1,000 mls @ 250 mls/hr IV ASDIRECTED TONE Last Admin: 12/04/20 12:20 Dose: 250 mls/hr Documented by: Piperacillin Sod/Tazobactam (Sod 3.375 gm/ Sodium Chloride) 50 mls @ 100 mls/hr IV Q6H [facility] Last Admin: 12/04/20 10:09 Dose: 100 mls/hr Documented by: Doxycycline Hyclate 100 mg/ (Sodium Chloride) 100 mls @ 100 mls/hr IV Q12H [facility] Last Admin: 12/04/20 13:34 Dose: 100 mls/hr Documented by: Insulin Human Lispro (Insulin Lispro 100 Unit/Ml 3 Ml Kwikpen) 0 unit SUBCUT TIDMEALS [facility]; Protocol Last Admin: 12/04/20 11:37 Dose: Not Given Documented by: Morphine Sulfate (Morphine 2 Mg/Ml Syringe) 2 mg IVPUSH Q2H PRN PRN Reason: Pain (severe 7-10) Ondansetron HCl (Ondansetron 4 Mg/2 Ml Sdv) 4 mg IV Q4H PRN PRN Reason: Nausea/Vomiting Last Admin: 12/03/20 08:07 Dose: 4 mg Documented by: Senna/Docusate Sodium (Docusate Sodium/Sennosides 50-8.6 Mg Tab) 1 tab PO BID PRN PRN Reason: Constipation Sodium Chloride (Sodium Chloride 0.9% 10 Ml Syringe) 10 ml FLUSH ASDIRECTED PRN PRN Reason: Keep Vein Open Last Admin: 12/04/20 06:07 Dose: 10 ml Documented by: Sodium Chloride (Sodium Chloride 0.65% Nasal [place] 45 Ml Bottle) 0 ml CAS Q2H PRN PRN Reason: Other Sodium Chloride (Sodium Chloride 0.9% 10 Ml Syringe) 10 ml FLUSH ASDIRECTED PRN PRN Reason: Keep Vein Open Discontinued Medications Piperacillin Sod/Tazobactam (Sod 4.5 gm/ Sodium Chloride) 100 mls @ 200 mls/hr IV Q6H [facility] Last Admin: 12/02/20 10:17 Dose: 200 mls/hr Documented by: Piperacillin Sod/Tazobactam (Sod 4.5 gm/ Sodium Chloride) 100 mls @ 200 mls/hr IV Q6H [facility] Last Admin: 12/04/20 03:35 Dose: 200 mls/hr Documented by: Vancomycin HCl 2 gm/ Premix 400 mls @ 200 mls/hr IV Q12H [facility] Last Admin: 12/04/20 08:04 Dose: Not Given Documented by: Sodium Chloride (Normal Saline) 1,000 mls @ 150 mls/hr IV ASDIRECTED TONE Last Admin: 12/02/20 17:44 Dose: 150 mls/hr Documented by: Sodium Chloride (Normal Saline) 500 mls @ 999 mls/hr IV .BOLUS ONE Stop: 12/02/20 18:08 Last Admin: 12/02/20 17:43 Dose: 999 mls/hr Documented by: Sodium Chloride (Normal Saline) 1,000 mls @ 999 mls/hr IV .BOLUS ONE Stop: 12/02/20 21:09 Last Admin: 12/02/20 22:58 Dose: Not Given Documented by: Sodium Chloride (Normal Saline) 1,000 mls @ 200 mls/hr IV ASDIRECTED TONE Last Admin: 12/04/20 03:07 Dose: 200 mls/hr Documented by: Sodium Chloride (Normal Saline) 1,000 mls @ 500 mls/hr IV ASDIRECTED TONE Last Admin: 12/03/20 11:40 Dose: 500 mls/hr Documented by: Dopamine HCl/Dextrose (Dopamine In D5w 400 Mg/250 Ml) 400 mg in 250 mls @ 20.391 mls/hr IV TITRATE TONE; Protocol Last Titration: 12/03/20 11:11 Dose: 2 mcg/kg/min, 20.391 mls/hr Documented by: Norepinephrine Bitartrate 4 mg (/ Dextrose/Water) 250 mls @ 7.5 mls/hr IV TITRATE TONE; Protocol Last Titration: 12/03/20 14:15 Dose: 4 mcg/min, 15 mls/hr Documented by: Sodium Chloride (Normal Saline) 1,000 mls @ 300 mls/hr IV ASDIRECTED TONE Last Admin: 12/03/20 18:55 Dose: 300 mls/hr Documented by: Sodium Chloride (Normal Saline) 500 mls @ 999 mls/hr IV .BOLUS ONE Stop: 12/03/20 15:48 Last Admin: 12/03/20 15:12 Dose: 999 mls/hr Documented by: Sodium Chloride (Normal Saline) 500 mls @ 999 mls/hr IV .BOLUS ONE Stop: 12/03/20 17:38 Last Admin: 12/03/20 17:10 Dose: 999 mls/hr Documented by: Albumin Human (Flexbumin 25%) 12.5 gm in 50 mls @ 100 mls/hr IV ONETIME ONE Stop: 12/03/20 20:53 Last Admin: 12/04/20 08:11 Dose: Not Given Documented by: Albumin Human (Flexbumin 25%) 12.5 gm in 50 mls @ 100 mls/hr IV ASDIRECTED TONE Stop: 12/08/20 21:29 Last Admin: 12/03/20 20:50 Dose: 100 mls/hr Documented by: Lidocaine HCl (Lidocaine 2% Hcl 6 Ml Jel.Pf.Aleena) 6 ml .XX ONETIME ONE Stop: 12/03/20 11:37 Last Admin: 12/03/20 11:55 Dose: 6 ml Documented by: Lidocaine HCl (Lidocaine 2% Hcl 6 Ml Jel.Pf.Aleena) 6 ml .XX ONETIME ONE Stop: 12/03/20 11:39 Last Admin: 12/03/20 11:43 Dose: Not Given Documented by: Non-Formulary Medication (Liraglutide [Victoza]) 1.8 mg SQ DAILY [facility] Last Admin: 12/03/20 11:42 Dose: Not Given Documented by: Oxycodone/Acetaminophen (Acetaminophen/Oxycodone 325-5 Mg Tab) 2 tab PO NOW STA Stop: 12/02/20 08:40 Last Admin: 12/02/20 08:55 Dose: 2 tab Documented by: Tranexamic Acid (Tranexamic Acid 1,000 Mg/10 Ml Amp) 500 mg TOP NOW STA Stop: 12/02/20 06:16 Vancomycin HCl (Pharmacy To Dose - Vancomycin) 1 dose .XX ASDIRECTED TONE - Exam Quality Assessment: Reports: Supplemental Oxygen, Urine Catheter (minimal output) General: Reports: Alert, Oriented, Cooperative Lungs: Reports: Clear to Auscultation, Normal Respiratory Effort, Decreased Breath Sounds (bibasilar). Denies: Crackles, Wheezing Cardiovascular: Reports: Tachycardia GI/Abdominal Exam: Normal Bowel Sounds, Soft, Non-Tender, No Distention, Other (morbid obesity) (Male) Exam: Deferred Rectal (Males) Exam: Deferred Extremities: Pedal Edema (chronic), Increased Warmth, Redness Wound/Incisions: Reports: No Drainage, Erythema (left leg) Psy/Mental Status: Reports: Alert, Normal Affect, Normal Mood
== END 2020-12-04 20:35 | DRG 720 ==
LOC: FB.ED 06:11 → FB.MS 12:56 → FB.ICU 12-03 09:43
PROVIDERS: ADMIT Family Medicine; ATTEND Family Medicine
PROC: 3E033XZ Introduction of Vasopressor into Peripheral Vein, Percutaneous Approach (ICD-10-PCS; principal; 2020-12-04)
PROC: 06HY33Z Insertion of Infusion Device into Lower Vein, Percutaneous Approach (ICD-10-PCS; 2020-12-04)
DX: A41.9 Sepsis, unspecified organism (principal); N17.9 Acute kidney failure, unspecified; L03.116 Cellulitis of left lower limb; R65.20 Severe sepsis without septic shock; Z20.822 Contact with and (suspected) exposure to COVID-19; E66.01 Morbid (severe) obesity due to excess calories; I89.0 Lymphedema, not elsewhere classified; I12.9 Hypertensive chronic kidney disease with stage 1 through stage 4 chronic kidney disease, or unspecified chronic kidney disease; E11.22 Type 2 diabetes mellitus with diabetic chronic kidney disease; B95.62 Methicillin resistant Staphylococcus aureus infection as the cause of diseases classified elsewhere; Z88.8 Allergy status to other drugs, medicaments and biological substances; Z79.899 Other long term (current) drug therapy; Z86.14 Personal history of Methicillin resistant Staphylococcus aureus infection; Z51.5 Encounter for palliative care; Z68.45 Body mass index [BMI] 70 or greater, adult
CPT/HCPCS: 31500; 36410; 36415; 51702; 71045; 80048; 80053; 80202; 81001; 82947; 83605; 83880; 84484; 85025; 85379; 86140; 87040; 87070; 87086; 87205; 93971-LT; 94150; 99285-25; A9270-GY; J1265; J1650; J1815; J2405; J2543; J3370; J3490; J7030; J7040; J7060; P9047; U0002